=== PATIENT | male | born 1985 | race Caucasian/White ===

== ENCOUNTER → 2017-11-04 08:45 | Outpatient (CLI) | payer OTHER, MEDICAID, SELFPAY ==
[2017-11-04 09:34] LABS: Hemoglobin A1C% w Est Avg Glu 7.7 % (4.0-6.0)
[2017-11-04 09:39] LABS: Alanine Aminotransferase 26 IU/L (21-72); Albumin 4.6 g/dL (3.5-5.0); Albumin Globulin Ratio 1.6 (1.0-2.8); Alkaline Phosphatase 98 U/L (38-126); Aspartate Aminotransferase 25 IU/L (17-59); BUN Creatinine Ratio 15.7 (6-22); Bilirubin Total 0.5 mg/dL (0.2-1.3); Blood Urea Nitrogen 11 mg/dL (9-20); Calcium 9.6 mg/dL (8.4-10.2); Carbon Dioxide 28 mmol/L (22-32); Chloride 103 mmol/L (98-107); Cholesterol 189 mg/dL (140-199); Estimated Glomerular Filt Rate > 60.0 mL/min (>60); Globulin 2.8 g/dL (1.7-4.1); Glucose 118 mg/dL (70-100); HDL Cholesterol 62 mg/dL (40-60); HEMOLYSIS < 15 (0-50); LDL Cholesterol Calculated 108 mg/dL (<100); Potassium 4.3 mmol/L (3.4-5.1); Sodium 142 mmol/L (137-145); Total Protein 7.4 g/dL (6.3-8.2); Triglycerides 93 mg/dL (35-150)
[2017-11-04 09:45] LABS: Creatinine Urine Random 99.2 mg/dL; Protein (Total) Urine Random 9 mg/dL (0-12); Protein Creatinine Ratio Urine 0.09 GRAM/24H
[2017-11-04 16:07] LABS: LDL Cholesterol Direct 129 mg/dL (<100)
== END ==
PROVIDERS: Visit Provider Family Medicine
DX: E10.9 Type 1 diabetes mellitus without complications (principal); E78.5 Hyperlipidemia, unspecified
CPT/HCPCS: 36415; 80053; 80061; 82570; 83036; 83721; 84156

== ENCOUNTER 2021-04-03 07:16 | Inpatient (IN) | payer OTHER, SELFPAY ==
[2021-04-03] VITALS (39 sets, daily range): BP systolic 132–179; BP diastolic 60–93; PULSE 72–141; RESP 16–45; TEMP 36.6–37; O2SAT 97–100; BMI 24.3; BMI 21.1
--- NOTE | 2021-04-03 07:55 | ED_ITS ---
HPI - General Adult General Chief complaint: Nausea/Vomiting/Diarrhea Stated complaint: nausea/unable to sleep x3 days Time Seen by Provider: 04/03/21 07:17 History of Present Illness HPI narrative: 35-year-old type 1 diabetic in outstanding control diagnosed at the age of 23 and no prior episodes of DKA currently on Lantus at 30 mg HS and sliding scale NovoLog presents with 2 days of feeling ?a little off? blood sugar last night was 170 he has had significant vomiting since yesterday, describes approximately every 30 minutes unable to keep fluids down a 10 lb weight loss over the last 48 hours with increasing pain and tenderness in his belly with deep Kussmaul type breathing. He describes global weakness but no specific fevers. No cough no palpitations diffuse abdominal pain, no flank pain no dysuria no diarrhea. He does not describe headache and has no other acute neurologic changes Related Data Home Medications Medication Instructions Recorded Confirmed No Known Home Medications 04/03/21 04/03/21 Allergies Allergy/AdvReac Type Severity Reaction Status Date / Time amoxicillin Allergy Intermediate Hives Verified 04/03/21 14:19 Review of Systems Review of Systems Narrative: Remainder of complete review of systems is otherwise unremarkable except for that included in the HPI. Patient History Medical History (Updated 04/03/21 @ 08:17 by Bushra Avina MD) Type 1 diabetes Social History household members: family Smoking Status: Current every day smoker Exam Narrative Exam Narrative: General: Acutely ill-appearing, Kussmaul breathing but alert and to give a complete and coherent history. Well-nourished well-developed HEENT: Very dry mucous membranes, normal sclera with reactive pupils, Neck: No JVD, supple Respiratory: Lungs are clear to auscultation, no wheezing no rales no rhonchi. Tachypneic with Deep, regular, Full and symmetrical air movement Cardiac: Tachycardic with regular rhythm no murmurs no bruits Abdomen: Soft, diffusely tender without rebound or guarding good bowel tones, no flank pain Skin: Pale and dry no rashes Neurologic: Grossly neurologically intact with no obvious asymmetries or abnormalities Extremities: No trauma, decreased peripheral perfusion Psych: Cooperative, appropriate insight and affect Initial Vital Signs Initial Vital Signs: Vital Signs Pulse Rate 97 H 04/03/21 07:46 Pulse Oximetry 100 04/03/21 07:46 Course Orders Ordered: ED Orders 04/03/21 08:09 XR chest 1V Stat EKG-12 Lead Stat 04/03/21 08:10 Respiratory Panel (Film Array) Stat Venous Blood Gas Stat 04/03/21 08:40 Blood Culture Stat 04/03/21 09:38 CT abdomen pelvis w con Stat 04/03/21 09:40 UA Complete [Urinalysis and Microscopic] Stat 04/03/21 10:45 BMP [Basic Metabolic Panel] Stat Diphenhydramine HCl (Diphenhydramine 50 Mg/Ml Vial) 12.5 mg IV Q6HR PRN PRN Reason: NAUSEA/VOMITING Last Admin: 04/03/21 16:40 Dose: 12.5 mg Documented by: DONNY INSULIN DRIP PREMIX (Myxredlin Drip Premix) 100 unit in 100 mls @ 6 mls/hr IV T ITRATE OSMAR; Protocol Last Titration: 04/03/21 16:31 Dose: 3.35 ml/hr, 3.35 mls/hr Documented by: CADEN Cosigned by: DONNY Titration: 04/03/21 13:00 Dose: 6.68 ml/hr, 6.68 mls/hr Documented by: CADEN Cosigned by: DONNY Titration: 04/03/21 12:05 Dose: 10 ml/hr, 10 mls/hr Documented by: CADEN Cosigned by: DONNY Titration: 04/03/21 09:23 Dose: 2 mls/hr Documented by: TALIA Cosigned by: ESTEPHANIA Admin: 04/03/21 08:26 Dose: 6 ml/hr, 6 mls/hr Documented by: ESTEPHANIA Cosigned by: AARON Dextrose/Sodium Chloride (Dextrose 5%-0.45% Ns) 1,000 mls @ 150 mls/hr IV CONT OSMAR Last Infusion: 04/03/21 12:14 Dose: 0 mls/hr Documented by: Admin: 04/03/21 10:33 Dose: 150 mls/hr Documented by: TALIA Sodium Chloride (Normal Saline 0.9%) 1,000 mls @ 150 mls/hr IV CONT OSMAR Last Admin: 04/03/21 12:15 Dose: 150 mls/hr Documented by: CADEN Metronidazole (Flagyl) 500 mg in 100 mls @ 100 mls/hr IV Q8H [facility] Last Infusion: 04/03/21 16:27 Dose: 0 mls/hr Documented by: Admin: 04/03/21 14:16 Dose: 100 mls/hr Documented by: DONNY Ceftriaxone Sodium 1,000 mg/ (Sodium Chloride) 100 mls @ 200 mls/hr IV Q24H [facility] Sodium Chloride (Normal Saline 0.9%) 1,000 mls @ 1,000 mls/hr IV BOLUS ONE Stop: 04/03/21 17:22 Last Admin: 04/03/21 16:28 Dose: 1,000 mls/hr Documented by: CADEN Lactobacillus Acidophilus (Lactobacillus Acidophilus Tablet) 1 each PO TIDWM [facility] Last Admin: 04/03/21 16:40 Dose: 1 each Documented by: DONNY Naloxone HCl (Naloxone 0.4 Mg/Ml Vial) 0.2 mg IV Q2MIN PRN PRN Reason: Opiate Reversal Ondansetron HCl (Ondansetron 4 Mg/2 Ml Inj) 4 mg IV Q4HR PRN PRN Reason: Nausea And Vomiting Discontinued Medications Sodium Chloride (Normal Saline 0.9%) 1,000 mls @ 1,000 mls/hr IV BOLUS ONE Stop: 04/03/21 09:08 Last Infusion: 04/03/21 09:41 Dose: 0 mls/hr Documented by: Admin: 04/03/21 08:24 Dose: 1,000 mls/hr Documented by: ESTEPHANIA Ceftriaxone Sodium 2,000 mg/ (Sodium Chloride) 100 mls @ 200 mls/hr IV NOW ONE Stop: 04/03/21 09:29 Last Infusion: 04/03/21 11:25 Dose: 0 mls/hr Documented by: Admin: 04/03/21 10:50 Dose: 200 mls/hr Documented by: TALIA Sodium Chloride (Normal Saline 0.9%) 1,000 mls @ 1,000 mls/hr IV BOLUS ONE Stop: 04/03/21 10:27 Last Infusion: 04/03/21 11:25 Dose: 0 mls/hr Documented by: Admin: 04/03/21 10:14 Dose: 1,000 mls/hr Documented by: TALIA Ondansetron HCl (Ondansetron 4 Mg/2 Ml Inj) 4 mg IV NOW ONE Stop: 04/03/21 08:10 Last Admin: 04/03/21 08:23 Dose: 4 mg Documented by: ESTEPHANIA Ondansetron HCl (Ondansetron 4 Mg/2 Ml Inj) 4 mg IV Q6HR PRN PRN Reason: Nausea And Vomiting Last Admin: 04/03/21 14:16 Dose: 4 mg Documented by: DONNY Ondansetron HCl (Ondansetron 4 Mg/2 Ml Inj) 4 mg IV Q6HR PRN PRN Reason: Nausea And Vomiting Vital Signs Vital signs: Vital Signs - 8 hr 04/03/21 09:15 04/03/21 09:16 04/03/21 09:30 Pulse Rate 104 H 101 H 97 H Respiratory Rate 40 H 30 H 36 H Blood Pressure 164/68 H 152/71 H Pulse Oximetry 100 99 100 Medical Decision Making Lab Data Lab results narrative: VB.112, CO2 19 Result diagrams: 04/03/21 07:45 04/03/21 15:00 Labs: Lab Results 04/03/21 04/03/21 04/03/21 Range/Units 07:45 07:45 07:45 WBC 29.7 H (4.5-11.0) X10^3/uL RBC 4.50 (4.5-5.9) X10^6/uL Hgb 13.7 (13.5-17.5) g/dL Hct 42.8 (41-53) % MCV 95.1 (80-100) fL MCH 30.4 (26-34) PG MCHC 32.0 (30-36) % RDW 14.7 (11.6-14.8) % Plt Count 544 H (150-400) X10^3/uL Neut % (Auto) 92.6 H (50-75) % Lymph % (Auto) 2.7 L (25-40) % [place] % (Auto) 4.6 (3-14) % Eos % (Auto) 0.0 L (2-4) % Baso % (Auto) 0.1 (0-2) % Neut # (Auto) 40980 H (0563-4962) /uL Lymph # (Auto) 800 L (6361-3801) /uL [place] # (Auto) 1400 H (0-900) /uL Eos # (Auto) 0 (0-450) /uL Baso # (Auto) 0 (0-100) /uL VBG pH (7.33-7.43) VBG pCO2 (45-50) mmHg VBG pO2 (35-45) mmHg VBG HCO3 (23-28) mmol/L VBG Total CO2 (24-29) mmol/L VBG O2 Saturation (70-75) % VBG Base Excess (0-4) mmol/L Sodium 134 L (137-145) mmol/L Potassium 5.6 H (3.4-5.1) mmol/L Chloride 97 L (98-107) mmol/L Carbon Dioxide < 5 L* (22-32) mmol/L BUN 29 H (9-20) mg/dL Creatinine 1.45 H (0.66-1.25) mg/dL Estimated GFR 55.7 L (>60) mL/min BUN/Creatinine Ratio 20.0 (6-22) Glucose 640 H* (70-100) mg/dL Lactate 4.0 H (0.7-2.1) mmol/L Calcium 10.0 (8.4-10.2) mg/dL Total Bilirubin 0.6 (0.2-1.3) mg/dL AST 29 (17-59) IU/L ALT 29 (<50) IU/L Alkaline Phosphatase 138 H (38-126) U/L Total Protein 8.9 H (6.3-8.2) g/dL Albumin 5.4 H (3.5-5.0) g/dL Globulin 3.5 (1.7-4.1) g/dL Albumin/Globulin Ratio 1.5 (1.0-2.8) Procalcitonin 3.91 H (<0.5) ng/mL Urine Color Urine Appearance Urine pH (4.5-8.0) Ur Specific [place] (1.000-1.035) Urine Protein (Negative) Urine Glucose (UA) (Negative) g/dL Urine Ketones (NEGATIVE) Urine Occult Blood (Negative) Urine Nitrate (Negative) Urine Bilirubin (NEGATIVE) Urine Urobilinogen (0.2) E.U./dL Ur Leukocyte Esterase (NEGATIVE) Urine RBC (0-5/HPF) Urine WBC (0-5/HPF) Ur Squamous Epith Cells (0-5/HPF) Urine Bacteria (None) Ur Culture Indicated? Ketones 10.60 H (<0.27) mmol/L Chlamy pneumoniae PCR (Not Detect) Adenovirus (PCR) (Not Detect) B. pertussis DNA (PCR) (Not Detecte) B.parapertussis DNA PCR (Not Detecte) Coronavirus OC43 (PCR) (Not Detect) Coronavirus HKU1 (PCR) (Not Detect) Coronavirus 229E (PCR) (Not Detect) SARS-CoV-2 (PCR) (Not Detecte) Coronavirus NL63 (PCR) (Not Detect) Human Metapneumovir PCR (Not Detect) Influenza Type A (PCR) (Not Detect) Influenza Type B (PCR) (Not Detect) M. pneumoniae (PCR) (Not Detect) Parainfluenza 1 (PCR) (Not Detect) Parainfluenza 2 (PCR) (Not Detect) Parainfluenza 3 (PCR) (Not Detect) Parainfluenza 4 (PCR) (Not Detect) RSV (PCR) (Not Detect) Entero/Rhino (PCR) (Not Detect) 04/03/21 04/03/21 04/03/21 Range/Units 08:10 08:10 09:40 WBC (4.5-11.0) X10^3/uL RBC (4.5-5.9) X10^6/uL Hgb (13.5-17.5) g/dL Hct (41-53) % MCV (80-100) fL MCH (26-34) PG MCHC (30-36) % RDW (11.6-14.8) % Plt Count (150-400) X10^3/uL Neut % (Auto) (50-75) % Lymph % (Auto) (25-40) % [place] % (Auto) (3-14) % Eos % (Auto) (2-4) % Baso % (Auto) (0-2) % Neut # (Auto) (4244-1894) /uL Lymph # (Auto) (1808-0023) /uL [place] # (Auto) (0-900) /uL Eos # (Auto) (0-450) /uL Baso # (Auto) (0-100) /uL VBG pH 7.11 L* (7.33-7.43) VBG pCO2 19.0 L (45-50) mmHg VBG pO2 54 H (35-45) mmHg VBG HCO3 6 L (23-28) mmol/L VBG Total CO2 7 L (24-29) mmol/L VBG O2 Saturation 77 H (70-75) % VBG Base Excess -23.0 L (0-4) mmol/L Sodium (137-145) mmol/L Potassium (3.4-5.1) mmol/L Chloride (98-107) mmol/L Carbon Dioxide (22-32) mmol/L BUN (9-20) mg/dL Creatinine (0.66-1.25) mg/dL Estimated GFR (>60) mL/min BUN/Creatinine Ratio (6-22) Glucose (70-100) mg/dL Lactate (0.7-2.1) mmol/L Calcium (8.4-10.2) mg/dL Total Bilirubin (0.2-1.3) mg/dL AST (17-59) IU/L ALT (<50) IU/L Alkaline Phosphatase (38-126) U/L Total Protein (6.3-8.2) g/dL Albumin (3.5-5.0) g/dL Globulin (1.7-4.1) g/dL Albumin/Globulin Ratio (1.0-2.8) Procalcitonin (<0.5) ng/mL Urine Color Yellow Urine Appearance Clear Urine pH 5.0 (4.5-8.0) Ur Specific [place] 1.025 (1.000-1.035) Urine Protein Negative (Negative) Urine Glucose (UA) 1+ H (Negative) g/dL Urine Ketones 3+ H (NEGATIVE) Urine Occult Blood 1+ H (Negative) Urine Nitrate Negative (Negative) Urine Bilirubin Negative (NEGATIVE) Urine Urobilinogen 0.2 (0.2) E.U./dL Ur Leukocyte Esterase Negative (NEGATIVE) Urine RBC 0-1/hpf (0-5/HPF) Urine WBC None seen (0-5/HPF) Ur Squamous Epith Cells None seen (0-5/HPF) Urine Bacteria None seen (None) Ur Culture Indicated? Cult not indicated Ketones (<0.27) mmol/L Chlamy pneumoniae PCR Not detected (Not Detect) Adenovirus (PCR) Not detected (Not Detect) B. pertussis DNA (PCR) Not detected (Not Detecte) B.parapertussis DNA PCR Not detected (Not Detecte) Coronavirus OC43 (PCR) Not detected (Not Detect) Coronavirus HKU1 (PCR) Not detected (Not Detect) Coronavirus 229E (PCR) Not detected (Not Detect) SARS-CoV-2 (PCR) Not detected (Not Detecte) Coronavirus NL63 (PCR) Not detected (Not Detect) Human Metapneumovir PCR Not detected (Not Detect) Influenza Type A (PCR) Not detected (Not Detect) Influenza Type B (PCR) Not detected (Not Detect) M. pneumoniae (PCR) Not detected (Not Detect) Parainfluenza 1 (PCR) Not detected (Not Detect) Parainfluenza 2 (PCR) Not detected (Not Detect) Parainfluenza 3 (PCR) Not detected (Not Detect) Parainfluenza 4 (PCR) Not detected (Not Detect) RSV (PCR) Not detected (Not Detect) Entero/Rhino (PCR) Not detected (Not Detect) Point of Care Testing Glucose POC 343 Point of care testing: Point of Care Testing Glucose POC [address] scan - abdomen/pelvis: Radiologist's Impression: FINDINGS:? Image quality:? Excellent.? ? Lung bases:? Unremarkable. Heart:? No significant findings. ? ABDOMEN: Liver:? Enlarged and demonstrates diffusely decreased density.? No focal mass. Gallbladder:? Grossly unremarkable? ? Biliary ducts:? Unremarkable.? ? Pancreas:? Unremarkable.? ? Spleen:? Unremarkable.? ? Adrenal Glands:? Unremarkable.? ? Kidneys and Ureters:? Unremarkable.? ? ? Stomach and Bowel:? Stomach is grossly unremarkable.? There are multiple mildly thickened small bowel loops within the central and right pelvis.? Colon is nondistended.? Appendix is within normal limits. Peritoneum:? No abnormal intraperitoneal fluid.? No free air.? ? Ventral Wall: ? No hernias.? Abdominal Nodes:? No retroperitoneal or mesenteric adenopathy by size criteria.? Vessels:? Aorta and inferior vena cava are normal in size.? ? PELVIS: Pelvic Organs:? Unremarkable.? ? Bladder:? Unremarkable.? ? Pelvic Nodes: No enlarged lymph nodes.? Miscellaneous: No hernias are seen. ? ? ? Bones:? Unremarkable.? IMPRESSION:? 1. Mildly thickened small bowel loops, consistent with infection versus inflamm ation. 2. Normal appendix. 3. Hepatic steatosis.? ? ? Dictated by: Gerald Winn M.D. on 04/03/2021 at 10:08? ?? ECG Data Interpretation: Sinus rhythm at a rate of 89 Peaked T-waves No acute ischemic changes (K=5.6) MDM Narrative Medical decision making narrative: [age] year olds type 1 diabetic with no prior episodes of DKA in his 12 years of type 1 diabetes presents with 2 days of general malaise and now vomiting every 30 minutes with a white count significantly elevated at 29.7 with a left shift. Chemistries show a pH of 7.1 on a venous blood gas with potassium of 5.6 carbon dioxide is less than 5, creatinine 1.45 glucose initially elevated at 640 lactic acid at 4.0, alk-phos of 138 total protein 8.9 albumin 5.4 and procalcitonin significantly elevated at 3.91. Chest x-ray is unremarkable. Urine is currently pending. Given his dramatically elevated white blood cell count as well as elevated procalcitonin concern for infectious etiology that is resulted in his DKA is certainly a possibility. I suspect his elevated lactic is related more to his diabetic ketoacidosis rather than sepsis or lactic acidosis. Will begin antib iotics and scan his belly as well to make sure we are not missing other source of infection. 950am care is reviewed with Dr. Jordan, admission is excepted. Will repeat a BMP, 2 hours since starting the insulin drip and adding fluids. Critical Care Time Critical Care Time Critical Care Time: Yes Total Critical Care Time: 33 Attestation: Critical care time is separate from other billable procedures. There is a high probability of a significant, sudden or life-threatening deterioration that requires my full and direct attention, intervention and personal management. This critical care time includes consultation with family and other consulting doctors, review of records, and interpretation of data from labs, EKGs and imaging as well as managements of severe diabetic ketoacidosis, endocrine crisis. Discharge Plan Departure Patient Disposition: Admitted As Inpatient Clinical Impression: DKA (diabetic ketoacidosis), Type 1 diabetes Admit Date/Time: 04/03/21 09:54 Admit Provider: Michaelle Jordan
--- NOTE | 2021-04-03 08:09 | DI.RAD.S_ITS ---
PROCEDURE: XR CHEST 1V INDICATIONS: DKA TECHNIQUE: One view of the chest was acquired. COMPARISON: None. FINDINGS: Surgical changes and devices: None. Lungs and pleura: Lungs are clear. No pleural effusions or pneumothorax. Mediastinum: Mediastinal contours appear normal. Heart size is normal. Bones and chest wall: No suspicious bony lesions. Overlying soft tissues appear unremarkable. IMPRESSION: No acute process. Dictated by: Gerald Winn M.D. on 04/03/2021 at 9:10 Approved by: Gerald Winn M.D. on 04/03/2021 at 9:10
[2021-04-03 08:18] LABS: Add Manual Diff / Slide Review NO; Basophils Absolute Auto 0 /uL (0-100); Basophils Percent Auto 0.1 % (0-2); Eosinophils Absolute Auto 0 /uL (0-450); Hematocrit 42.8 % (41-53); Hemoglobin 13.7 g/dL (13.5-17.5); Lymphocytes Absolute Auto 800 /uL (1100-4500); Lymphocytes Percent Auto 2.7 % (25-40); Mean Corpuscular Hemoglobin 30.4 PG (26-34); Mean Corpuscular Volume 95.1 fL (80-100); Monocytes Absolute Auto 1400 /uL (0-900); Monocytes Percent Auto 4.6 % (3-14); Neutrophils Absolute Auto 27500 /uL (1500-7000); Neutrophils Percent Auto 92.6 % (50-75); Platelet Count 544 X10^3/uL (150-400); Red Cell Distribution Width 14.7 % (11.6-14.8); White Blood Cell Count 29.7 X10^3/uL (4.5-11.0)
[2021-04-03] MEDS: ONDANSETRON 4 MG/2 ML INJ IV ×3 (08:23→23:20)
[2021-04-03] MEDS: SODIUM CHLORIDE 0.9% 1,000 ML 1000 ML IV ×3 (08:24→16:28)
[2021-04-03] MEDS: INSULIN DRIP PREMIX 100 UNIT/100 ML PLAST..BAG 6 UNIT IV (08:26)
[2021-04-03 08:29] LABS: Alanine Aminotransferase 29 IU/L (<50); Albumin 5.4 g/dL (3.5-5.0); Albumin Globulin Ratio 1.5 (1.0-2.8); Alkaline Phosphatase 138 U/L (38-126); Aspartate Aminotransferase 29 IU/L (17-59); Bilirubin Total 0.6 mg/dL (0.2-1.3); Blood Urea Nitrogen 29 mg/dL (9-20); Chloride 97 mmol/L (98-107); Estimated Glomerular Filt Rate 55.7 mL/min (>60); Globulin 3.5 g/dL (1.7-4.1); Sodium 134 mmol/L (137-145); Total Protein 8.9 g/dL (6.3-8.2)
[2021-04-03 08:30] LABS: pH VBG 7.11 (7.33-7.43)
[2021-04-03 08:31] LABS: HCO3 VBG 6 mmol/L (23-28); Oxygen Saturation VBG 77 % (70-75); PO2 VBG 54 mmHg (35-45); Total CO2 VBG 7 mmol/L (24-29)
[2021-04-03 08:36] LABS: HEMOLYSIS < 15 (0-50)
[2021-04-03 08:38] LABS: Glucose 640 mg/dL (70-100)
[2021-04-03 08:39] LABS: Carbon Dioxide < 5 mmol/L (22-32); Potassium 5.6 mmol/L (3.4-5.1)
[2021-04-03 08:48] LABS: Procalcitonin 3.91 ng/mL (<0.5)
[2021-04-03 09:23] LABS: Adenovirus Not Detected (Not Detect); B. parapertussis Not Detected (Not Detecte); Bordetella pertussis Not Detected (Not Detecte); Chlamydophila pneumoniae Not Detected (Not Detect); Coronavirus 229E Not Detected (Not Detect); Coronavirus HKU1 Not Detected (Not Detect); Coronavirus NL 63 Not Detected (Not Detect); Coronavirus OC43 Not Detected (Not Detect); Human Metapneumovirus Not Detected (Not Detect); Human Rhinovirus/Enterovirus Not Detected (Not Detect); Influenza A Not Detected (Not Detect); Influenza B Not Detected (Not Detect); Mycoplasma pneumoniae Not Detected (Not Detect); Parainfluenza Virus 1 Not Detected (Not Detect); Parainfluenza Virus 2 Not Detected (Not Detect); Parainfluenza Virus 3 Not Detected (Not Detect); Parainfluenza Virus 4 Not Detected (Not Detect); Respiratory Syncytial Virus Not Detected (Not Detect); SARS- CoV-2 Not Detected (Not Detecte)
--- NOTE | 2021-04-03 09:38 | DI.CT.S_ITS ---
PROCEDURE: CT ABDOMEN PELVIS W CON INDICATIONS: leykocytosis, abdominal pain, DKA TECHNIQUE: After the administration of intravenous and a small amount of oral contrast, axial sections acquired from the lung bases to the pubic symphysis. Coronal and sagittal reformats were performed. For radiation dose reduction, the following was used: automated exposure control, adjustment of mA and/or kV according to patient size. COMPARISON: None. FINDINGS: Image quality: Excellent. Lung bases: Unremarkable. Heart: No significant findings. ABDOMEN: Liver: Enlarged and demonstrates diffusely decreased density. No focal mass. Gallbladder: Grossly unremarkable Biliary ducts: Unremarkable. Pancreas: Unremarkable. Spleen: Unremarkable. Adrenal Glands: Unremarkable. Kidneys and Ureters: Unremarkable. Stomach and Bowel: Stomach is grossly unremarkable. There are multiple mildly thickened small bowel loops within the central and right pelvis. Colon is nondistended. Appendix is within normal limits. Peritoneum: No abnormal intraperitoneal fluid. No free air. Ventral Wall: No hernias. Abdominal Nodes: No retroperitoneal or mesenteric adenopathy by size criteria. Vessels: Aorta and inferior vena cava are normal in size. PELVIS: Pelvic Organs: Unremarkable. Bladder: Unremarkable. Pelvic Nodes: No enlarged lymph nodes. Miscellaneous: No hernias are seen. Bones: Unremarkable. IMPRESSION: 1. Mildly thickened small bowel loops, consistent with infection versus inflammation. 2. Normal appendix. 3. Hepatic steatosis. Dictated by: Gerald Winn M.D. on 04/03/2021 at 10:08 Approved by: Gerald Winn M.D. on 04/03/2021 at 10:10
[2021-04-03 09:49] LABS: Appearance Urine UA CLEAR; Bilirubin Urine UA NEGATIVE (NEGATIVE); Color Urine UA YELLOW; Glucose Urine UA 1+ g/dL (Negative); Ketones Urine UA 3+ (NEGATIVE); Leukocyte Esterase Urine UA NEGATIVE (NEGATIVE); Nitrite Urine UA NEGATIVE (Negative); Occult Blood Urine UA 1+ (Negative); Protein Urine UA NEGATIVE (Negative); Specific Gravity Urine UA 1.025 (1.000-1.035); Urobilinogen Urine UA 0.2 E.U./dL (0.2)
[2021-04-03 09:57] LABS: Bacteria Urine None Seen; Culture Indicated Urine Cult Not Indicated; RBC Urine 0-1/HPF (0-5/HPF); Squamous Epithelial Cell Urine None Seen (0-5/HPF); WBC Urine None Seen (0-5/HPF)
[2021-04-03 10:15] LABS: Reflexed Lactate in 2 Hours Y
[2021-04-03] MEDS: DEXTROSE 5%-0.45% NS 1,000 ML 150 ML IV (10:33)
[2021-04-03] MEDS: cefTRIAXone 2,000 MG in SODIUM CHLORIDE 0.9% 100 ML 200 ML IV (10:50)
[2021-04-03 11:16] LABS: Lactate 2HR (Lactic Acid Rflx) 1.8 mmol/L (0.7-2.1)
[2021-04-03 11:30] LABS: BUN Creatinine Ratio 23.3 (6-22); Blood Urea Nitrogen 28 mg/dL (9-20); Calcium 9.4 mg/dL (8.4-10.2); Chloride 107 mmol/L (98-107); Estimated Glomerular Filt Rate > 60.0 mL/min (>60); Glucose 365 mg/dL (70-100); HEMOLYSIS < 15 (0-50); Potassium 5.3 mmol/L (3.4-5.1); Sodium 140 mmol/L (137-145)
[2021-04-03 11:32] LABS: Carbon Dioxide < 5 mmol/L (22-32)
[2021-04-03] MEDS: SODIUM CHLORIDE 0.9% 1,000 ML 150 ML IV (12:15)
--- NOTE | 2021-04-03 13:33 | PM.CN ---
History of Present Illness Consult details Date Patient Seen: 04/03/21 Chief complaint: nausea/unable to sleep x3 days Narrative: THIS IS A 35-YEAR-OLD MALE WITH A HISTORY OF FAIRLY CONTROLLED DIABETIC TYPE 1. HE USES [facility]. HE CAME TO THE ER REPORTING THAT FOR LAST FEW DAY HE HAS NOT BEEN SLEEPING WELL AND HAS BEEN HAVING SIGNIFICANT NAUSEA AND VOMITING. THIS STARTED ABOUT THREE DAYS AGO. HE REMEMBER GOING OUT TO EAT ONE OF THE LOCAL RESTAURANT AND THE NEXT DAY STARTING FEELING NAUSEOUS AND HAVE MULTIPLE BOUTS OF VOMITING. HE DENIES ANY DIARRHEA. HE HAS SIGNIFICANTLY DECREASED ORAL INTAKE OVER LAST FEW DAYS DUE TO THE SEVERE NAUSEA. HE DENIES ANY FEVER. NO CHILLS. SOME ABDOMINAL DISCOMFORT ALSO REPORTED. DIFFUSE AND NONFOCAL. IN THE ER, HE IS TACHYCARDIC AND HYPERTENSIVE . SIGNIFICANT LEUKOCYTOSIS ALSO APPRECIATED. HE WAS ACIDOTIC FOR ABG WELL THROMBOCYTOTIC CHEST X-RAY WAS UNREMARKABLE. ABDOMINAL CT SHOWING SOME FATTY LIVER DISEASE WELL SOME SMALL BOWEL INFLAMMATION WHICH COULD BE DUODENITIS Meds Home Medications and Allergies Home Medications Medication Instructions Recorded Confirmed Type No Known Home Medications 04/03/21 04/03/21 History Allergies Allergy/AdvReac Type Severity Reaction Status Date / Time amoxicillin Allergy Intermediate Hives Verified 04/03/21 14:19 Review of Systems Review of Systems Narrative: ALL SYSTEM REVIEWED. NEGATIVE UNLESS NOTED ABOVE IN HPI Exam Vital Signs (past 8 hours): - 04/03/21 07:46 04/03/21 07:49 04/03/21 08:00 Temperature 97.9 F Pulse Rate 97 H 95 H 102 H Respiratory Rate 28 H Blood Pressure 139/76 Pulse Oximetry 100 100 100 04/03/21 08:15 04/03/21 08:30 04/03/21 08:45 Temperature Pulse Rate 100 H 103 H 99 H Respiratory Rate Blood Pressure Pulse Oximetry 100 100 100 04/03/21 08:46 04/03/21 09:00 04/03/21 09:15 Temperature Pulse Rate 100 H 94 H 104 H Respiratory Rate 30 H 44 H 40 H Blood Pressure 158/72 H 149/67 H Pulse Oximetry 100 99 100 04/03/21 09:16 04/03/21 09:30 04/03/21 10:00 Temperature Pulse Rate 101 H 97 H 110 H Respiratory Rate 30 H 36 H Blood Pressure 164/68 H 152/71 H Pulse Oximetry 99 100 100 04/03/21 10:11 04/03/21 10:15 04/03/21 10:30 Temperature Pulse Rate 104 H 95 H 114 H Respiratory Rate 31 H 39 H 28 H Blood Pressure 140/86 145/69 H Pulse Oximetry 100 100 100 04/03/21 10:34 04/03/21 10:45 04/03/21 10:53 Temperature Pulse Rate 106 H 141 H 114 H Respiratory Rate 36 H 42 H 35 H Blood Pressure 164/71 H 132/93 H Pulse Oximetry 100 04/03/21 11:00 04/03/21 11:01 04/03/21 11:15 Temperature Pulse Rate 117 H 125 H 102 H Respiratory Rate 28 H 45 H 33 H Blood Pressure 179/74 H 159/70 H Pulse Oximetry 100 Oxygen Delivery Method Room Air Narrative Exam Narrative: NO ACUTE DISTRESS. PATIENT IS ALERT ORIENTED X3. APPEARS OLDER THAN STATED AGE VITAL SIGNS STABLE HEAD ATRAUMATIC NORMOCEPHALIC NECK : SUPPLE WITHOUT ADENOPATHY NO CAROTID BRUITS EYE: EOMI, PERRLA, NORMAL CONJUNCTIVA; NO JAUNDICE CHEST: REGULAR RATE. NO RUBS. PMI IS NON DISPLACED. NO MURMURS; NORMAL S1-S2 PULMONARY: DECREASED BS OVER THE BASES. MILD BIBASILAR CRACKLES NOTED; NO INCREASED DULLNESS TO PERCUSSION ABDOMEN: SOFT. NONTENDER. NONDISTENDED. BOWEL SOUNDS ARE PRESENT IN ALL 4 QUADRANTS. NO MASS. EXTREMITIES: NO EDEMA.. NO CYANOSIS CLUBBING NOTED. NEURO: CRANIAL NERVES 2-12 GROSSLY INTACT. NO FOCAL NEUROLOGICAL DEFICIT NOTED. MSK: NORMAL RANGE OF MOTION FOR AGE. NO JOINT EFFUSION. SKIN: NORMAL FOR ETHNICITY; NO ECCHYMOSIS. NO LESION. GOOD TURGOR.; NO RASHES : NORMAL EXTERNAL GENITALIA. PSYCH : APPROPRIATE MOOD AND AFFECT. ALERT AWAKE ORIENTED X3 Objective Labs Result Diagrams: 04/03/21 07:45 04/03/21 10:45 Labs: Laboratory Results - last 24 hr 04/03/21 04/03/21 04/03/21 07:45 07:45 07:45 WBC 29.7 H RBC 4.50 Hgb 13.7 Hct 42.8 MCV 95.1 MCH 30.4 MCHC 32.0 RDW 14.7 Plt Count 544 H Neut % (Auto) 92.6 H Lymph % (Auto) 2.7 L [place] % (Auto) 4.6 Eos % (Auto) 0.0 L Baso % (Auto) 0.1 Neut # (Auto) 64963 H Lymph # (Auto) 800 L [place] # (Auto) 1400 H Eos # (Auto) 0 Baso # (Auto) 0 VBG pH VBG pCO2 VBG pO2 VBG HCO3 VBG Total CO2 VBG O2 Saturation VBG Base Excess Sodium 134 L Potassium 5.6 H Chloride 97 L Carbon Dioxide < 5 L* BUN 29 H Creatinine 1.45 H Estimated GFR 55.7 L BUN/Creatinine Ratio 20.0 Glucose 640 H* Lactate 4.0 H Calcium 10.0 Total Bilirubin 0.6 AST 29 ALT 29 Alkaline Phosphatase 138 H Total Protein 8.9 H Albumin 5.4 H Globulin 3.5 Albumin/Globulin Ratio 1.5 Procalcitonin 3.91 H Urine Color Urine Appearance Urine pH Ur Specific [place] Urine Protein Urine Glucose (UA) Urine Ketones Urine Occult Blood Urine Nitrate Urine Bilirubin Urine Urobilinogen Ur Leukocyte Esterase Urine RBC Urine WBC Ur Squamous Epith Cells Urine Bacteria Ur Culture Indicated? Ketones 10.60 H Chlamy pneumoniae PCR Adenovirus (PCR) B. pertussis DNA (PCR) B.parapertussis DNA PCR Coronavirus OC43 (PCR) Coronavirus HKU1 (PCR) Coronavirus 229E (PCR) SARS-CoV-2 (PCR) Coronavirus NL63 (PCR) Human Metapneumovir PCR Influenza Type A (PCR) Influenza Type B (PCR) M. pneumoniae (PCR) Parainfluenza 1 (PCR) Parainfluenza 2 (PCR) Parainfluenza 3 (PCR) Parainfluenza 4 (PCR) RSV (PCR) Entero/Rhino (PCR) 04/03/21 04/03/21 04/03/21 08:10 08:10 09:40 WBC RBC Hgb Hct MCV MCH MCHC RDW Plt Count Neut % (Auto) Lymph % (Auto) [place] % (Auto) Eos % (Auto) Baso % (Auto) Neut # (Auto) Lymph # (Auto) [place] # (Auto) Eos # (Auto) Baso # (Auto) VBG pH 7.11 L* VBG pCO2 19.0 L VBG pO2 54 H VBG HCO3 6 L VBG Total CO2 7 L VBG O2 Saturation 77 H VBG Base Excess -23.0 L Sodium Potassium Chloride Carbon Dioxide BUN Creatinine Estimated GFR BUN/Creatinine Ratio Glucose Lactate Calcium Total Bilirubin AST ALT Alkaline Phosphatase Total Protein Albumin Globulin Albumin/Globulin Ratio Procalcitonin Urine Color Yellow Urine Appearance Clear Urine pH 5.0 Ur Specific [place] 1.025 Urine Protein Negative Urine Glucose (UA) 1+ H Urine Ketones 3+ H Urine Occult Blood 1+ H Urine Nitrate Negative Urine Bilirubin Negative Urine Urobilinogen 0.2 Ur Leukocyte Esterase Negative Urine RBC 0-1/hpf Urine WBC None seen Ur Squamous Epith Cells None seen Urine Bacteria None seen Ur Culture Indicated? Cult not indicated Ketones Chlamy pneumoniae PCR Not detected Adenovirus (PCR) Not detected B. pertussis DNA (PCR) Not detected B.parapertussis DNA PCR Not detected Coronavirus OC43 (PCR) Not detected Coronavirus HKU1 (PCR) Not detected Coronavirus 229E (PCR) Not detected SARS-CoV-2 (PCR) Not detected Coronavirus NL63 (PCR) Not detected Human Metapneumovir PCR Not detected Influenza Type A (PCR) Not detected Influenza Type B (PCR) Not detected M. pneumoniae (PCR) Not detected Parainfluenza 1 (PCR) Not detected Parainfluenza 2 (PCR) Not detected Parainfluenza 3 (PCR) Not detected Parainfluenza 4 (PCR) Not detected RSV (PCR) Not detected Entero/Rhino (PCR) Not detected 04/03/21 04/03/21 10:45 10:55 WBC RBC Hgb Hct MCV MCH MCHC RDW Plt Count Neut % (Auto) Lymph % (Auto) [place] % (Auto) Eos % (Auto) Baso % (Auto) Neut # (Auto) Lymph # (Auto) [place] # (Auto) Eos # (Auto) Baso # (Auto) VBG pH VBG pCO2 VBG pO2 VBG HCO3 VBG Total CO2 VBG O2 Saturation VBG Base Excess Sodium 140 Potassium 5.3 H Chloride 107 Carbon Dioxide < 5 L* BUN 28 H Creatinine 1.20 Estimated GFR > 60.0 BUN/Creatinine Ratio 23.3 H Glucose 365 H D Lactate 1.8 Calcium 9.4 Total Bilirubin AST ALT Alkaline Phosphatase Total Protein Albumin Globulin Albumin/Globulin Ratio Procalcitonin Urine Color Urine Appearance Urine pH Ur Specific [place] Urine Protein Urine Glucose (UA) Urine Ketones Urine Occult Blood Urine Nitrate Urine Bilirubin Urine Urobilinogen Ur Leukocyte Esterase Urine RBC Urine WBC Ur Squamous Epith Cells Urine Bacteria Ur Culture Indicated? Ketones Chlamy pneumoniae PCR Adenovirus (PCR) B. pertussis DNA (PCR) B.parapertussis DNA PCR Coronavirus OC43 (PCR) Coronavirus HKU1 (PCR) Coronavirus 229E (PCR) SARS-CoV-2 (PCR) Coronavirus NL63 (PCR) Human Metapneumovir PCR Influenza Type A (PCR) Influenza Type B (PCR) M. pneumoniae (PCR) Parainfluenza 1 (PCR) Parainfluenza 2 (PCR) Parainfluenza 3 (PCR) Parainfluenza 4 (PCR) RSV (PCR) Entero/Rhino (PCR) [facility] Medical History (Updated 04/03/21 @ 08:17 by Bushra Avina MD) Type 1 diabetes Social History household members: family Tobacco & Substance Use Smoking Status: Current every day smoker Assessment & Plan Assessment & Plan narrative: PROBLEM LIST DKA. ON INSULIN DRIP DUODENITIS MORE LIKELY VERSUS GASTROENTERITIS /FOOD POISONING. ON ANTIBIOTICS POSSIBLE SEPSIS. PRESENT ON ARRIVAL. WITH ORGAN DYSFUNCTION. LEUKOCYTOSIS ACUTE KIDNEY INJURY. APPEARED TO BE PRERENAL SEVERE DEHYDRATION / INTRAVASCULAR FLUID DEPLETION THROMBOCYTOSIS. LIKELY ACUTE REACTANT POSSIBLE FATTY LIVER DISEASE. COULD BE FURTHER FOLLOWED OUTPATIENT HYPERKALEMIA. MONITOR ONLY FOR NOW. RECOMMENDATIONS CONTINUE INSULIN DRIP FOR NOW Q 4 HOURS BASIC METABOLIC PANEL ORDERED TO EVALUATE ANION GAP /ACIDOSIS AGGRESSIVE IV REHYDRATION CHANGE TO D5 NORMAL SALINE ONCE BLOOD SUGAR IS LESS THAN 250 IF GAP PERSIST MONITOR PHOSPHORUS AND OTHER ELECTROLYTES CLOSELY SERIAL ABG TO FOLLOW INDICATED AVOID NEPHROTOXINS MONITOR INPUT AND OUTPUT CLOSELY PATIENT STARTED ON ABX WITH ROCEPHIN AND FLAGYL WOULD ORDER STOOL STUDIES IF DIARRHEA DEVELOPS HYPERKALEMIA NOTED ON ADMISSION. HOWEVER NO ACUTE TREATMENT INDICATED NO ARRHYTHMIA NOTED ON TELEMETRY SHOULD RESOLVE WITH CORRECTION OF THE DKA WE APPRECIATE THIS KIND CONSULT WILL GLADLY FOLLOW WITH YOU Time Spent With Patient Critical Care time: I spent a total of [] minutes of critical care time on this patient's care today; this time is exclusive of procedural time.
[2021-04-03 14:10] LABS: PCO2 VBG 20.8 mmHg (45-50); PO2 VBG 35 mmHg (35-45); pH VBG 7.25 (7.33-7.43)
[2021-04-03 14:11] LABS: HCO3 VBG 9 mmol/L (23-28); Oxygen Saturation VBG 61 % (70-75); Total CO2 VBG 10 mmol/L (24-29)
[2021-04-03] MEDS: metroNIDAZOLE 500 MG/100 ML PIGGYBACK 100 MG IV ×2 (14:16→22:34)
--- NOTE | 2021-04-03 15:34 | P.TELICUCN_ITS ---
History of Present Illness Consult details Chief complaint: nausea/unable to sleep x3 days :: This patient was seen via real time interactive two-way audiovisual telecommunication. admited to ICU for DKA feels better nausea [present PFSH Medical History (Updated 04/03/21 @ 08:17 by Bushra Avina MD) Type 1 diabetes Social History household members: family Smoking Status: Current every day smoker Current Medications Current Medications Medications: Home Medications No Known Home Medications 04/03/21 [History Confirmed 04/03/21] Visit Medications (administered) Generic Name Dose Route Start Last Admin Trade Name Freq PRN Reason Stop Dose Admin INSULIN DRIP PREMIX 100 unit in 100 mls @ 6 mls/hr 04/03/21 08:15 04/03/21 12:05 Myxredlin Drip Premix IV 10 ml/hr TITRATE OSMAR 10 mls/hr Titration Protocol Dextrose/Sodium Chloride 1,000 mls @ 150 mls/hr 04/03/21 10:15 04/03/21 12:14 Dextrose 5%-0.45% Ns IV 0 mls/hr CONT OSMAR Infusion Sodium Chloride 1,000 mls @ 150 mls/hr 04/03/21 12:15 04/03/21 12:15 Normal Saline 0.9% IV 150 mls/hr CONT OSMAR Administration Metronidazole 500 mg in 100 mls @ 100 mls/hr 04/03/21 14:00 04/03/21 14:16 Flagyl IV 100 mls/hr Q8H OSMAR Administration Ondansetron HCl 4 mg 04/03/21 13:04 04/03/21 14:16 Ondansetron 4 Mg/2 Ml Inj IV 4 mg Q6HR PRN Administration Nausea And Vomiting Exam Vital Signs (past 8 hours): - 04/03/21 07:46 04/03/21 07:49 04/03/21 08:00 Temperature 97.9 F Pulse Rate 97 H 95 H 102 H Respiratory Rate 28 H Blood Pressure 139/76 Pulse Oximetry 100 100 100 04/03/21 08:15 04/03/21 08:30 04/03/21 08:45 Temperature Pulse Rate 100 H 103 H 99 H Respiratory Rate Blood Pressure Pulse Oximetry 100 100 100 04/03/21 08:46 12/22/21 09:00 04/03/21 09:15 Temperature Pulse Rate 100 H 94 H 104 H Respiratory Rate 30 H 44 H 40 H Blood Pressure 158/72 H 149/67 H Pulse Oximetry 100 99 100 04/03/21 09:16 04/03/21 09:30 04/03/21 10:00 Temperature Pulse Rate 101 H 97 H 110 H Respiratory Rate 30 H 36 H Blood Pressure 164/68 H 152/71 H Pulse Oximetry 99 100 100 04/03/21 10:11 04/03/21 10:15 04/03/21 10:30 Temperature Pulse Rate 104 H 95 H 114 H Respiratory Rate 31 H 39 H 28 H Blood Pressure 140/86 145/69 H Pulse Oximetry 100 100 100 04/03/21 10:34 04/03/21 10:45 04/03/21 10:53 Temperature Pulse Rate 106 H 141 H 114 H Respiratory Rate 36 H 42 H 35 H Blood Pressure 164/71 H 132/93 H Pulse Oximetry 100 04/03/21 11:00 04/03/21 11:01 04/03/21 11:15 Temperature Pulse Rate 117 H 125 H 102 H Respiratory Rate 28 H 45 H 33 H Blood Pressure 179/74 H 159/70 H Pulse Oximetry 100 04/03/21 11:30 04/03/21 14:00 04/03/21 14:55 Temperature Pulse Rate 102 H 100 H 90 Respiratory Rate 32 H 32 H Blood Pressure 152/71 H 136/63 Pulse Oximetry 100 100 Oxygen Delivery Method Room Air Oxygen Flow Rate 0 Objective Labs Result Diagrams: 04/03/21 07:45 04/03/21 10:45 Labs: Laboratory Results - last 24 hr 04/03/21 04/03/21 04/03/21 07:45 07:45 07:45 WBC 29.7 H RBC 4.50 Hgb 13.7 Hct 42.8 MCV 95.1 MCH 30.4 MCHC 32.0 RDW 14.7 Plt Count 544 H Neut % (Auto) 92.6 H Lymph % (Auto) 2.7 L [place] % (Auto) 4.6 Eos % (Auto) 0.0 L Baso % (Auto) 0.1 Neut # (Auto) 11733 H Lymph # (Auto) 800 L [place] # (Auto) 1400 H Eos # (Auto) 0 Baso # (Auto) 0 VBG pH VBG pCO2 VBG pO2 VBG HCO3 VBG Total CO2 VBG O2 Saturation VBG Base Excess Sodium 134 L Potassium 5.6 H Chloride 97 L Carbon Dioxide < 5 L* BUN 29 H Creatinine 1.45 H Estimated GFR 55.7 L BUN/Creatinine Ratio 20.0 Glucose 640 H* Lactate 4.0 H Calcium 10.0 Total Bilirubin 0.6 AST 29 ALT 29 Alkaline Phosphatase 138 H Total Protein 8.9 H Albumin 5.4 H Globulin 3.5 Albumin/Globulin Ratio 1.5 Procalcitonin 3.91 H Urine Color Urine Appearance Urine pH Ur Specific [place] Urine Protein Urine Glucose (UA) Urine Ketones Urine Occult Blood Urine Nitrate Urine Bilirubin Urine Urobilinogen Ur Leukocyte Esterase Urine RBC Urine WBC Ur Squamous Epith Cells Urine Bacteria Ur Culture Indicated? Nasal Screen MRSA (PCR) Ketones 10.60 H Chlamy pneumoniae PCR Adenovirus (PCR) B. pertussis DNA (PCR) B.parapertussis DNA PCR Coronavirus OC43 (PCR) Coronavirus HKU1 (PCR) Coronavirus 229E (PCR) SARS-CoV-2 (PCR) Coronavirus NL63 (PCR) Human Metapneumovir PCR Influenza Type A (PCR) Influenza Type B (PCR) M. pneumoniae (PCR) Parainfluenza 1 (PCR) Parainfluenza 2 (PCR) Parainfluenza 3 (PCR) Parainfluenza 4 (PCR) RSV (PCR) Entero/Rhino (PCR) 04/03/21 04/03/21 04/03/21 08:10 08:10 09:40 WBC RBC Hgb Hct MCV MCH MCHC RDW Plt Count Neut % (Auto) Lymph % (Auto) [place] % (Auto) Eos % (Auto) Baso % (Auto) Neut # (Auto) Lymph # (Auto) [place] # (Auto) Eos # (Auto) Baso # (Auto) VBG pH 7.11 L* VBG pCO2 19.0 L VBG pO2 54 H VBG HCO3 6 L VBG Total CO2 7 L VBG O2 Saturation 77 H VBG Base Excess -23.0 L Sodium Potassium Chloride Carbon Dioxide BUN Creatinine Estimated GFR BUN/Creatinine Ratio Glucose Lactate Calcium Total Bilirubin AST ALT Alkaline Phosphatase Total Protein Albumin Globulin Albumin/Globulin Ratio Procalcitonin Urine Color Yellow Urine Appearance Clear Urine pH 5.0 Ur Specific [place] 1.025 Urine Protein Negative Urine Glucose (UA) 1+ H Urine Ketones 3+ H Urine Occult Blood 1+ H Urine Nitrate Negative Urine Bilirubin Negative Urine Urobilinogen 0.2 Ur Leukocyte Esterase Negative Urine RBC 0-1/hpf Urine WBC None seen Ur Squamous Epith Cells None seen Urine Bacteria None seen Ur Culture Indicated? Cult not indicated Nasal Screen MRSA (PCR) Ketones Chlamy pneumoniae PCR Not detected Adenovirus (PCR) Not detected B. pertussis DNA (PCR) Not detected B.parapertussis DNA PCR Not detected Coronavirus OC43 (PCR) Not detected Coronavirus HKU1 (PCR) Not detected Coronavirus 229E (PCR) Not detected SARS-CoV-2 (PCR) Not detected Coronavirus NL63 (PCR) Not detected Human Metapneumovir PCR Not detected Influenza Type A (PCR) Not detected Influenza Type B (PCR) Not detected M. pneumoniae (PCR) Not detected Parainfluenza 1 (PCR) Not detected Parainfluenza 2 (PCR) Not detected Parainfluenza 3 (PCR) Not detected Parainfluenza 4 (PCR) Not detected RSV (PCR) Not detected Entero/Rhino (PCR) Not detected 04/03/21 04/03/21 04/03/21 10:45 10:55 12:16 WBC RBC Hgb Hct MCV MCH MCHC RDW Plt Count Neut % (Auto) Lymph % (Auto) [place] % (Auto) Eos % (Auto) Baso % (Auto) Neut # (Auto) Lymph # (Auto) [place] # (Auto) Eos # (Auto) Baso # (Auto) VBG pH VBG pCO2 VBG pO2 VBG HCO3 VBG Total CO2 VBG O2 Saturation VBG Base Excess Sodium 140 Potassium 5.3 H Chloride 107 Carbon Dioxide < 5 L* BUN 28 H Creatinine 1.20 Estimated GFR > 60.0 BUN/Creatinine Ratio 23.3 H Glucose 365 H D Lactate 1.8 Calcium 9.4 Total Bilirubin AST ALT Alkaline Phosphatase Total Protein Albumin Globulin Albumin/Globulin Ratio Procalcitonin Urine Color Urine Appearance Urine pH Ur Specific [place] Urine Protein Urine Glucose (UA) Urine Ketones Urine Occult Blood Urine Nitrate Urine Bilirubin Urine Urobilinogen Ur Leukocyte Esterase Urine RBC Urine WBC Ur Squamous Epith Cells Urine Bacteria Ur Culture Indicated? Nasal Screen MRSA (PCR) Negative for mrsa Ketones Chlamy pneumoniae PCR Adenovirus (PCR) B. pertussis DNA (PCR) B.parapertussis DNA PCR Coronavirus OC43 (PCR) Coronavirus HKU1 (PCR) Coronavirus 229E (PCR) SARS-CoV-2 (PCR) Coronavirus NL63 (PCR) Human Metapneumovir PCR Influenza Type A (PCR) Influenza Type B (PCR) M. pneumoniae (PCR) Parainfluenza 1 (PCR) Parainfluenza 2 (PCR) Parainfluenza 3 (PCR) Parainfluenza 4 (PCR) RSV (PCR) Entero/Rhino (PCR) 04/03/21 13:19 WBC RBC Hgb Hct MCV MCH MCHC RDW Plt Count Neut % (Auto) Lymph % (Auto) [place] % (Auto) Eos % (Auto) Baso % (Auto) Neut # (Auto) Lymph # (Auto) [place] # (Auto) Eos # (Auto) Baso # (Auto) VBG pH 7.25 L VBG pCO2 20.8 L VBG pO2 35 VBG HCO3 9 L VBG Total CO2 10 L VBG O2 Saturation 61 L VBG Base Excess -18.0 L Sodium Potassium Chloride Carbon Dioxide BUN Creatinine Estimated GFR BUN/Creatinine Ratio Glucose Lactate Calcium Total Bilirubin AST ALT Alkaline Phosphatase Total Protein Albumin Globulin Albumin/Globulin Ratio Procalcitonin Urine Color Urine Appearance Urine pH Ur Specific [place] Urine Protein Urine Glucose (UA) Urine Ketones Urine Occult Blood Urine Nitrate Urine Bilirubin Urine Urobilinogen Ur Leukocyte Esterase Urine RBC Urine WBC Ur Squamous Epith Cells Urine Bacteria Ur Culture Indicated? Nasal Screen MRSA (PCR) Ketones Chlamy pneumoniae PCR Adenovirus (PCR) B. pertussis DNA (PCR) B.parapertussis DNA PCR Coronavirus OC43 (PCR) Coronavirus HKU1 (PCR) Coronavirus 229E (PCR) SARS-CoV-2 (PCR) Coronavirus NL63 (PCR) Human Metapneumovir PCR Influenza Type A (PCR) Influenza Type B (PCR) M. pneumoniae (PCR) Parainfluenza 1 (PCR) Parainfluenza 2 (PCR) Parainfluenza 3 (PCR) Parainfluenza 4 (PCR) RSV (PCR) Entero/Rhino (PCR) Assessment & Plan Assessment & Plan narrative: patient seen and examined with bedside nurse chart/labs/imaging reviewed 35 year old male with PMhx of DM1 with DKA dehydration hyperkaemia small bowel inflammation plan -bolus 1L of LR -continue dka protocol -repeat bmp -continue abx check cxs can dc if -ve -check a1c -gi/vdt ppx -pleaser call Tele ICU if condition changes Time Spent With Patient Critical Care time: I spent a total of [] minutes of critical care time on this patient's care today; this time is exclusive of procedural time.
[2021-04-03 15:42] LABS: BUN Creatinine Ratio 22.5 (6-22); Blood Urea Nitrogen 23 mg/dL (9-20); Calcium 9.1 mg/dL (8.4-10.2); Carbon Dioxide 11 mmol/L (22-32); Chloride 113 mmol/L (98-107); Estimated Glomerular Filt Rate > 60.0 mL/min (>60); Glucose 218 mg/dL (70-100); HEMOLYSIS 24 (0-50); Potassium 4.4 mmol/L (3.4-5.1); Sodium 142 mmol/L (137-145)
[2021-04-03] MEDS: diphenhydrAMINE 50 MG/ML VIAL 12.5 MG IV (16:40)
[2021-04-03] MEDS: LACTOBACILLUS ACIDOPHILUS TABLET 1 EACH PO (16:40)
[2021-04-03] MEDS: INSULIN DRIP PREMIX 100 UNIT/100 ML PLAST..BAG IV (17:24)
[2021-04-03 17:57] LABS: BUN Creatinine Ratio 23.3 (6-22); Blood Urea Nitrogen 21 mg/dL (9-20); Calcium 8.6 mg/dL (8.4-10.2); Carbon Dioxide 15 mmol/L (22-32); Chloride 115 mmol/L (98-107); Estimated Glomerular Filt Rate > 60.0 mL/min (>60); Glucose 149 mg/dL (70-100); HEMOLYSIS 19 (0-50); Sodium 141 mmol/L (137-145)
--- NOTE | 2021-04-03 18:17 | P.HP_ITS ---
History of Present Illness History of Present Illness Date Patient Seen: 04/03/21 Time Patient Seen: 18:17 Date of Onset of Symptoms: 03/31/21 Chief complaint: nausea/unable to sleep x3 days Narrative: Is a very pleasant 35-year-old male who presented to the ER today with intractable vomiting that had been ongoing for 2 and half days. He has a history of type 1 diabetes is under the primary care of Dr. Nicholson. He uses NovoLog insulin usually is very well controlled. He states that he started feeling off on Thursday night and because he fell off he just really could not describe it. He no longer had an appetite and actually stopped eating. Then on Thursday morning he was at work where he works on a [employer] from on [facility] [place] states that he distant feel right. He then by the end of the day started vomiting and continued to vomit every 20 minutes until he reported to the emergency department. He had pain throughout his body and muscles from the vomiting and felt weak in his legs. In the emergency department he was found to be in diabetic ketoacidosis with a pH of 7.1 and acidosis and and was admitted for treatment. He was started on insulin drip and quickly started correcting his acidosis, ketosis and pH. Past medical history: Insulin-dependent diabetes. He was diagnosed at about 23. He has been on NovoLog 1 unit per 8 g carbohydrates and has done very well. Tobacco use Allergies: Amoxicillin causes a rash Past surgical history: Unremarkable Health related behavior: Smokes cigarettes. Uses marijuana on a daily basis. Does not use illicit drugs. Uses rare alcohol Social history: Patient lives in in accordance with his parents. He works on [employer] Family history: He has 2 sisters who are type 1 diabetics but no other family history of abnormalities Patient History Medical History Type 1 diabetes Family & Social History Social History: household members family Prior Living Arrangements House Safety & Behavioral: Feels Safe in Current Yes Environment Been Physically Hurt or No Threatened By a Person Suicidal Ideation Description None Suicide Plan Description No Plan Tobacco & Substance use: Tobacco type cigarettes,cannabis/marijuana Smoking Status Current every day smoker Smoking packs per day 0.5 alcohol intake frequency 0-2 drinks per day Substance Use Type marijuana Meds Home Medications and Allergies Home Medications Medication Instructions Recorded Confirmed Type No Known Home Medications 12/22/21 12/22/21 History Allergies Allergy/AdvReac Type Severity Reaction Status Date / Time amoxicillin Allergy Intermediate Hives Verified 04/03/21 14:19 Review of Systems Review of Systems Narrative: Patient denies any fever, chills, diarrhea. He has not had a bowel movement for 3 days. He has not been eating for 3 days. He has been trying to stay up on water but was having excessive vomiting. He has not had a fever. He has not had a cough. He has not had a headache. He denies chest pain or shortness of breath. Diffusely his muscles hurt from vomiting. Twelve point review of system is otherwise negative other than above in HPI Exam Vital Signs (past 8 hours): - 04/03/21 10:30 04/03/21 10:34 04/03/21 10:45 Pulse Rate 114 H 106 H 141 H Respiratory Rate 28 H 36 H 42 H Blood Pressure 164/71 H Pulse Oximetry 100 100 04/03/21 10:53 04/03/21 11:00 04/03/21 11:01 Pulse Rate 114 H 117 H 125 H Respiratory Rate 35 H 28 H 45 H Blood Pressure 132/93 H 179/74 H Pulse Oximetry 04/03/21 11:15 04/03/21 11:30 04/03/21 14:00 Pulse Rate 102 H 102 H 100 H Respiratory Rate 33 H 32 H 32 H Blood Pressure 159/70 H 152/71 H Pulse Oximetry 100 100 04/03/21 14:55 04/03/21 15:00 04/03/21 15:15 Pulse Rate 90 100 H 87 Respiratory Rate Blood Pressure 136/63 136/63 Pulse Oximetry 100 100 100 04/03/21 15:30 04/03/21 15:45 04/03/21 16:00 Pulse Rate 80 86 88 Respiratory Rate Blood Pressure 140/62 Pulse Oximetry 100 100 100 04/03/21 16:15 04/03/21 16:30 04/03/21 16:45 Pulse Rate 83 89 88 Respiratory Rate Blood Pressure Pulse Oximetry 99 99 100 04/03/21 17:00 04/03/21 17:15 04/03/21 17:30 Pulse Rate 79 86 105 H Respiratory Rate Blood Pressure 136/92 H Pulse Oximetry 97 100 100 04/03/21 17:45 04/03/21 18:00 Pulse Rate 79 93 H Respiratory Rate Blood Pressure 148/67 H Pulse Oximetry 100 100 Oxygen Delivery Method Room Air Oxygen Flow Rate 0 Narrative Exam Narrative: Alert and oriented x3. HEENT is unremarkable other than dry mucous membranes Neck: Supple without adenopathy or thyromegaly or jugular venous distension Chest: Clear to auscultation without wheezes rhonchi or crackles Cor: Regular rate and rhythm without any murmur Abdomen: Positive bowel sounds, soft, nontender, nondistended, no guarding, no hepatosplenomegaly Extremities: No edema, pulses intact Neurologic exam nonfocal Skin exam no rashes Objective Labs Result Diagrams: 04/03/21 07:45 04/03/21 17:30 Labs: Laboratory Results - last 24 hr 04/03/21 04/03/21 04/03/21 07:45 07:45 07:45 WBC 29.7 H RBC 4.50 Hgb 13.7 Hct 42.8 MCV 95.1 MCH 30.4 MCHC 32.0 RDW 14.7 Plt Count 544 H Neut % (Auto) 92.6 H Lymph % (Auto) 2.7 L [place] % (Auto) 4.6 Eos % (Auto) 0.0 L Baso % (Auto) 0.1 Neut # (Auto) 12269 H Lymph # (Auto) 800 L [place] # (Auto) 1400 H Eos # (Auto) 0 Baso # (Auto) 0 VBG pH VBG pCO2 VBG pO2 VBG HCO3 VBG Total CO2 VBG O2 Saturation VBG Base Excess Sodium 134 L Potassium 5.6 H Chloride 97 L Carbon Dioxide < 5 L* BUN 29 H Creatinine 1.45 H Estimated GFR 55.7 L BUN/Creatinine Ratio 20.0 Glucose 640 H* Lactate 4.0 H Calcium 10.0 Total Bilirubin 0.6 AST 29 ALT 29 Alkaline Phosphatase 138 H Total Protein 8.9 H Albumin 5.4 H Globulin 3.5 Albumin/Globulin Ratio 1.5 Procalcitonin 3.91 H Urine Color Urine Appearance Urine pH Ur Specific [place] Urine Protein Urine Glucose (UA) Urine Ketones Urine Occult Blood Urine Nitrate Urine Bilirubin Urine Urobilinogen Ur Leukocyte Esterase Urine RBC Urine WBC Ur Squamous Epith Cells Urine Bacteria Ur Culture Indicated? Nasal Screen MRSA (PCR) Ketones 10.60 H Chlamy pneumoniae PCR Adenovirus (PCR) B. pertussis DNA (PCR) B.parapertussis DNA PCR Coronavirus OC43 (PCR) Coronavirus HKU1 (PCR) Coronavirus 229E (PCR) SARS-CoV-2 (PCR) Coronavirus NL63 (PCR) Human Metapneumovir PCR Influenza Type A (PCR) Influenza Type B (PCR) M. pneumoniae (PCR) Parainfluenza 1 (PCR) Parainfluenza 2 (PCR) Parainfluenza 3 (PCR) Parainfluenza 4 (PCR) RSV (PCR) Entero/Rhino (PCR) 04/03/21 04/03/21 04/03/21 08:10 08:10 09:40 WBC RBC Hgb Hct MCV MCH MCHC RDW Plt Count Neut % (Auto) Lymph % (Auto) [place] % (Auto) Eos % (Auto) Baso % (Auto) Neut # (Auto) Lymph # (Auto) [place] # (Auto) Eos # (Auto) Baso # (Auto) VBG pH 7.11 L* VBG pCO2 19.0 L VBG pO2 54 H VBG HCO3 6 L VBG Total CO2 7 L VBG O2 Saturation 77 H VBG Base Excess -23.0 L Sodium Potassium Chloride Carbon Dioxide BUN Creatinine Estimated GFR BUN/Creatinine Ratio Glucose Lactate Calcium Total Bilirubin AST ALT Alkaline Phosphatase Total Protein Albumin Globulin Albumin/Globulin Ratio Procalcitonin Urine Color Yellow Urine Appearance Clear Urine pH 5.0 Ur Specific [place] 1.025 Urine Protein Negative Urine Glucose (UA) 1+ H Urine Ketones 3+ H Urine Occult Blood 1+ H Urine Nitrate Negative Urine Bilirubin Negative Urine Urobilinogen 0.2 Ur Leukocyte Esterase Negative Urine RBC 0-1/hpf Urine WBC None seen Ur Squamous Epith Cells None seen Urine Bacteria None seen Ur Culture Indicated? Cult not indicated Nasal Screen MRSA (PCR) Ketones Chlamy pneumoniae PCR Not detected Adenovirus (PCR) Not detected B. pertussis DNA (PCR) Not detected B.parapertussis DNA PCR Not detected Coronavirus OC43 (PCR) Not detected Coronavirus HKU1 (PCR) Not detected Coronavirus 229E (PCR) Not detected SARS-CoV-2 (PCR) Not detected Coronavirus NL63 (PCR) Not detected Human Metapneumovir PCR Not detected Influenza Type A (PCR) Not detected Influenza Type B (PCR) Not detected M. pneumoniae (PCR) Not detected Parainfluenza 1 (PCR) Not detected Parainfluenza 2 (PCR) Not detected Parainfluenza 3 (PCR) Not detected Parainfluenza 4 (PCR) Not detected RSV (PCR) Not detected Entero/Rhino (PCR) Not detected 04/03/21 04/03/21 04/03/21 10:45 10:55 12:16 WBC RBC Hgb Hct MCV MCH MCHC RDW Plt Count Neut % (Auto) Lymph % (Auto) [place] % (Auto) Eos % (Auto) Baso % (Auto) Neut # (Auto) Lymph # (Auto) [place] # (Auto) Eos # (Auto) Baso # (Auto) VBG pH VBG pCO2 VBG pO2 VBG HCO3 VBG Total CO2 VBG O2 Saturation VBG Base Excess Sodium 140 Potassium 5.3 H Chloride 107 Carbon Dioxide < 5 L* BUN 28 H Creatinine 1.20 Estimated GFR > 60.0 BUN/Creatinine Ratio 23.3 H Glucose 365 H D Lactate 1.8 Calcium 9.4 Total Bilirubin AST ALT Alkaline Phosphatase Total Protein Albumin Globulin Albumin/Globulin Ratio Procalcitonin Urine Color Urine Appearance Urine pH Ur Specific [place] Urine Protein Urine Glucose (UA) Urine Ketones Urine Occult Blood Urine Nitrate Urine Bilirubin Urine Urobilinogen Ur Leukocyte Esterase Urine RBC Urine WBC Ur Squamous Epith Cells Urine Bacteria Ur Culture Indicated? Nasal Screen MRSA (PCR) Negative for mrsa Ketones Chlamy pneumoniae PCR Adenovirus (PCR) B. pertussis DNA (PCR) B.parapertussis DNA PCR Coronavirus OC43 (PCR) Coronavirus HKU1 (PCR) Coronavirus 229E (PCR) SARS-CoV-2 (PCR) Coronavirus NL63 (PCR) Human Metapneumovir PCR Influenza Type A (PCR) Influenza Type B (PCR) M. pneumoniae (PCR) Parainfluenza 1 (PCR) Parainfluenza 2 (PCR) Parainfluenza 3 (PCR) Parainfluenza 4 (PCR) RSV (PCR) Entero/Rhino (PCR) 04/03/21 04/03/21 04/03/21 13:19 15:00 17:30 WBC RBC Hgb Hct MCV MCH MCHC RDW Plt Count Neut % (Auto) Lymph % (Auto) [place] % (Auto) Eos % (Auto) Baso % (Auto) Neut # (Auto) Lymph # (Auto) [place] # (Auto) Eos # (Auto) Baso # (Auto) VBG pH 7.25 L VBG pCO2 20.8 L VBG pO2 35 VBG HCO3 9 L VBG Total CO2 10 L VBG O2 Saturation 61 L VBG Base Excess -18.0 L Sodium 142 141 Potassium 4.4 4.0 Chloride 113 H 115 H Carbon Dioxide 11 L 15 L BUN 23 H 21 H Creatinine 1.02 0.90 Estimated GFR > 60.0 > 60.0 BUN/Creatinine Ratio 22.5 H 23.3 H Glucose 218 H D 149 H Lactate Calcium 9.1 8.6 Total Bilirubin AST ALT Alkaline Phosphatase Total Protein Albumin Globulin Albumin/Globulin Ratio Procalcitonin Urine Color Urine Appearance Urine pH Ur Specific [place] Urine Protein Urine Glucose (UA) Urine Ketones Urine Occult Blood Urine Nitrate Urine Bilirubin Urine Urobilinogen Ur Leukocyte Esterase Urine RBC Urine WBC Ur Squamous Epith Cells Urine Bacteria Ur Culture Indicated? Nasal Screen MRSA (PCR) Ketones Chlamy pneumoniae PCR Adenovirus (PCR) B. pertussis DNA (PCR) B.parapertussis DNA PCR Coronavirus OC43 (PCR) Coronavirus HKU1 (PCR) Coronavirus 229E (PCR) SARS-CoV-2 (PCR) Coronavirus NL63 (PCR) Human Metapneumovir PCR Influenza Type A (PCR) Influenza Type B (PCR) M. pneumoniae (PCR) Parainfluenza 1 (PCR) Parainfluenza 2 (PCR) Parainfluenza 3 (PCR) Parainfluenza 4 (PCR) RSV (PCR) Entero/Rhino (PCR) Assessment & Plan Assessment & Plan narrative: 35-year-old male with insulin-dependent diabetes admitted for diabetic ketoacidosis Assessment 1. Diabetic ketoacidosis. Improving with insulin drip Plan: Continue with insulin drip. Appreciate hospitalist consultation. Continue with IV fluids to correct dehydration and to correct electrolyte abn ormalities. Assessment 2. Acute dehydration improved Plan: Continue with IV fluids Assessment 3. Vomiting. Differential diagnosis includes infectious versus inflammatory versus possibly cannabis hyperemesis syndrome. Seems that his symptoms fit with this. CT scan showed inflammation in the small intestines which could just be due to the amount of vomiting he was having. Plan: Continue ceftriaxone and the Flagyl until we get his culture results back. He had a markedly elevated white blood cell count. Will recheck this in the morning. Will continue not using marijuana at this time. Continue supporting nausea with Zofran. Will continue with IV fluids and correcting the dehydration. Assessment 4. Leukocytosis certainly could be acute dehydration and DKA versus possible infectious etiology Plan at this point will continue ceftriaxone and the Flagyl. Will reassess labs in a.m.. Code status is full code. 70 minute spent with patient, discussing his case with physicians, nursing, patient, documentation and formulating a plan. Time Spent With Patient Critical Care time: I spent a total of [] minutes of critical care time on this patient's care today; this time is exclusive of procedural time.
--- NOTE | 2021-04-03 18:46 | PC.NURSE ---
pt admitted to room 229- icu with dka and elevated wbc- c/ointermittent joint pain and some nausea- medicated with zofran as well as benedryl to control nausea- voiding per urinal and resting intermittently alert/oriented and cooperative
[2021-04-03] MEDS: DEXTROSE 5%-0.45% NS 1,000 ML 100 ML IV (20:47)
[2021-04-03 22:05] LABS: BUN Creatinine Ratio 24.4 (6-22); Blood Urea Nitrogen 19 mg/dL (9-20); Calcium 8.8 mg/dL (8.4-10.2); Carbon Dioxide 20 mmol/L (22-32); Chloride 115 mmol/L (98-107); Estimated Glomerular Filt Rate > 60.0 mL/min (>60); Glucose 131 mg/dL (70-100); HEMOLYSIS 19 (0-50); Potassium 3.8 mmol/L (3.4-5.1); Sodium 140 mmol/L (137-145)
[2021-04-03 22:08] LABS: Ketones (Beta-Hydroxybutyrate) 0.86 mmol/L (<0.27)
[2021-04-03] MEDS: INSULIN GLARGINE 100 UNIT/ML 3ML PEN 30 UNIT SUBCUT (22:52)
[2021-04-03 23:06] LABS: HCO3 VBG 18 mmol/L (23-28); PCO2 VBG 34.7 mmHg (45-50); PO2 VBG 40 mmHg (35-45); Total CO2 VBG 19 mmol/L (24-29)
[2021-04-03 23:07] LABS: Oxygen Saturation VBG 71 % (70-75); pH VBG 7.33 (7.33-7.43)
--- NOTE | 2021-04-03 23:36 | PM.ICURNDS ---
- Note: Case discussed with CLIENT ACCOUNT REPRESENTATIVE earlier this shift. Due to hyperchloremia, I ordered a BOHB despite a normal anion gapp. 21:40 result was still (+)-->will continue DKA protocol.
[2021-04-04] VITALS: BP 135/64; PULSE 86; RESP 17; TEMP 36.8; O2SAT 100
[2021-04-04 00:57] LABS: Hemoglobin A1C% w Est Avg Glu 6.1 % (4.0-6.0)
[2021-04-04] MEDS: diphenhydrAMINE 50 MG/ML VIAL 12.5 MG IV (02:10)
[2021-04-04 04:29] VITALS: BP 131/66; PULSE 90; RESP 16; TEMP 36.7; O2SAT 100
[2021-04-04] MEDS: metroNIDAZOLE 500 MG/100 ML PIGGYBACK 100 MG IV ×3 (05:26→21:29)
[2021-04-04 05:59] LABS: Add Manual Diff / Slide Review NO; Basophils Absolute Auto 0 /uL (0-100); Basophils Percent Auto 0.2 % (0-2); Eosinophils Absolute Auto 0 /uL (0-450); Hematocrit 35.1 % (41-53); Hemoglobin 11.6 g/dL (13.5-17.5); Lymphocytes Absolute Auto 700 /uL (1100-4500); Lymphocytes Percent Auto 3.4 % (25-40); Mean Corpuscular Hemoglobin 30.1 PG (26-34); Mean Corpuscular Volume 91.2 fL (80-100); Monocytes Absolute Auto 900 /uL (0-900); Monocytes Percent Auto 4.4 % (3-14); Neutrophils Absolute Auto 19300 /uL (1500-7000); Platelet Count 408 X10^3/uL (150-400); Red Blood Cell Count 3.84 X10^6/uL (4.5-5.9); Red Cell Distribution Width 14.1 % (11.6-14.8)
[2021-04-04 06:07] LABS: Alanine Aminotransferase 24 IU/L (<50); Albumin 4.3 g/dL (3.5-5.0); Albumin Globulin Ratio 1.8 (1.0-2.8); Alkaline Phosphatase 82 U/L (38-126); Aspartate Aminotransferase 30 IU/L (17-59); BUN Creatinine Ratio 21.7 (6-22); Bilirubin Total 0.8 mg/dL (0.2-1.3); Blood Urea Nitrogen 18 mg/dL (9-20); Carbon Dioxide 10 mmol/L (22-32); Chloride 107 mmol/L (98-107); Estimated Glomerular Filt Rate > 60.0 mL/min (>60); Globulin 2.4 g/dL (1.7-4.1); Glucose 368 mg/dL (70-100); HEMOLYSIS 57 (0-50); Potassium 4.3 mmol/L (3.4-5.1); Sodium 138 mmol/L (137-145); Total Protein 6.7 g/dL (6.3-8.2)
--- NOTE | 2021-04-04 06:12 | PC.NURSE ---
Addendum entered by Sweta Santa R.N. 04/04/21 06:18: Informed Jacinto also of pt's ketones of 8.44 from this am lab. Original Note: Informed BENJAMIN Casey of pt's. BG result per am lab is 368, she will order vbg.
[2021-04-04 06:14] LABS: Ketones (Beta-Hydroxybutyrate) 8.44 mmol/L (<0.27)
--- NOTE | 2021-04-04 07:20 | PM.PN.1 ---
Subjective Subjective Date Patient Seen: 04/04/21 Interval history: BRIEF HPI THIS IS A VERY PLEASANT 35-YEAR-OLD MALE WITH PAST MEDICAL HISTORY SIGNIFICANT WITH INSULIN-DEPENDENT DIABETES. TYPE 1. PATIENT HAS BEEN ADMITTED WITH DKA WELL GASTROENTERITIS. THIS MORNING PATIENT STATED THAT HE WAS NOT FEELING TOO WELL HE WAS NAUSEATED. FEELING SIGNIFICANT MALAISE NO VOMITING REPORTED. NO ABDOMINAL DISCOMFORT NO DIARRHEA SPOKE TO NURSING REGARDING THE CASE Exam Vital Signs (past 8 hours): - 04/04/21 00:00 04/04/21 04:29 Temperature 98.2 F 98.0 F Pulse Rate 86 90 Respiratory Rate 17 16 Blood Pressure 135/64 131/66 Pulse Oximetry 100 100 Oxygen Delivery Method Room Air Oxygen Flow Rate 0 Narrative Exam Narrative: NO ACUTE DISTRESS.? PATIENT IS ALERT ORIENTED X3.? APPEARS OLDER THAN STATED AGE VITAL SIGNS STABLE HEAD ATRAUMATIC NORMOCEPHALIC NECK : SUPPLE WITHOUT ADENOPATHY NO CAROTID BRUITS EYE:? EOMI, PERRLA, NORMAL CONJUNCTIVA; NO JAUNDICE CHEST:? REGULAR RATE.? ? NO RUBS.? PMI IS NON DISPLACED.? NO MURMURS; NORMAL S1-S2 PULMONARY:? DECREASED BS OVER THE BASES.? MILD BIBASILAR CRACKLES NOTED; NO INCREASED DULLNESS TO PERCUSSION ABDOMEN:? SOFT.? NONTENDER.? NONDISTENDED.? BOWEL SOUNDS ARE PRESENT IN ALL 4 QUADRANTS.? NO MASS. EXTREMITIES: NO EDEMA..? NO CYANOSIS CLUBBING NOTED. NEURO:? CRANIAL NERVES 2-12 GROSSLY INTACT. NO FOCAL NEUROLOGICAL DEFICIT NOTED. MSK:? NORMAL RANGE OF MOTION FOR AGE.? NO JOINT EFFUSION. SKIN:? NORMAL FOR ETHNICITY; NO ECCHYMOSIS.? NO LESION. ? GOOD? TURGOR.; NO RASHES :? NORMAL EXTERNAL GENITALIA. PSYCH :? APPROPRIATE MOOD AND AFFECT.? ALERT AWAKE ORIENTED X3 Objective Labs Result Diagrams: 04/04/21 05:30 04/04/21 05:30 Labs: Laboratory Results - last 24 hr 04/03/21 04/03/21 04/03/21 07:45 07:45 07:45 WBC 29.7 H RBC 4.50 Hgb 13.7 Hct 42.8 MCV 95.1 MCH 30.4 MCHC 32.0 RDW 14.7 Plt Count 544 H Neut % (Auto) 92.6 H Lymph % (Auto) 2.7 L [place] % (Auto) 4.6 Eos % (Auto) 0.0 L Baso % (Auto) 0.1 Neut # (Auto) 35016 H Lymph # (Auto) 800 L [place] # (Auto) 1400 H Eos # (Auto) 0 Baso # (Auto) 0 VBG pH VBG pCO2 VBG pO2 VBG HCO3 VBG Total CO2 VBG O2 Saturation VBG Base Excess Sodium 134 L Potassium 5.6 H Chloride 97 L Carbon Dioxide < 5 L* BUN 29 H Creatinine 1.45 H Estimated GFR 55.7 L BUN/Creatinine Ratio 20.0 Glucose 640 H* Hemoglobin A1c Lactate 4.0 H Calcium 10.0 Total Bilirubin 0.6 AST 29 ALT 29 Alkaline Phosphatase 138 H Total Protein 8.9 H Albumin 5.4 H Globulin 3.5 Albumin/Globulin Ratio 1.5 Procalcitonin 3.91 H Urine Color Urine Appearance Urine pH Ur Specific [place] Urine Protein Urine Glucose (UA) Urine Ketones Urine Occult Blood Urine Nitrate Urine Bilirubin Urine Urobilinogen Ur Leukocyte Esterase Urine RBC Urine WBC Ur Squamous Epith Cells Urine Bacteria Ur Culture Indicated? Nasal Screen MRSA (PCR) Ketones 10.60 H Chlamy pneumoniae PCR Adenovirus (PCR) B. pertussis DNA (PCR) B.parapertussis DNA PCR Coronavirus OC43 (PCR) Coronavirus HKU1 (PCR) Coronavirus 229E (PCR) SARS-CoV-2 (PCR) Coronavirus NL63 (PCR) Human Metapneumovir PCR Influenza Type A (PCR) Influenza Type B (PCR) M. pneumoniae (PCR) Parainfluenza 1 (PCR) Parainfluenza 2 (PCR) Parainfluenza 3 (PCR) Parainfluenza 4 (PCR) RSV (PCR) Entero/Rhino (PCR) 04/03/21 04/03/21 04/03/21 08:10 08:10 09:40 WBC RBC Hgb Hct MCV MCH MCHC RDW Plt Count Neut % (Auto) Lymph % (Auto) [place] % (Auto) Eos % (Auto) Baso % (Auto) Neut # (Auto) Lymph # (Auto) [place] # (Auto) Eos # (Auto) Baso # (Auto) VBG pH 7.11 L* VBG pCO2 19.0 L VBG pO2 54 H VBG HCO3 6 L VBG Total CO2 7 L VBG O2 Saturation 77 H VBG Base Excess -23.0 L Sodium Potassium Chloride Carbon Dioxide BUN Creatinine Estimated GFR BUN/Creatinine Ratio Glucose Hemoglobin A1c Lactate Calcium Total Bilirubin AST ALT Alkaline Phosphatase Total Protein Albumin Globulin Albumin/Globulin Ratio Procalcitonin Urine Color Yellow Urine Appearance Clear Urine pH 5.0 Ur Specific [place] 1.025 Urine Protein Negative Urine Glucose (UA) 1+ H Urine Ketones 3+ H Urine Occult Blood 1+ H Urine Nitrate Negative Urine Bilirubin Negative Urine Urobilinogen 0.2 Ur Leukocyte Esterase Negative Urine RBC 0-1/hpf Urine WBC None seen Ur Squamous Epith Cells None seen Urine Bacteria None seen Ur Culture Indicated? Cult not indicated Nasal Screen MRSA (PCR) Ketones Chlamy pneumoniae PCR Not detected Adenovirus (PCR) Not detected B. pertussis DNA (PCR) Not detected B.parapertussis DNA PCR Not detected Coronavirus OC43 (PCR) Not detected Coronavirus HKU1 (PCR) Not detected Coronavirus 229E (PCR) Not detected SARS-CoV-2 (PCR) Not detected Coronavirus NL63 (PCR) Not detected Human Metapneumovir PCR Not detected Influenza Type A (PCR) Not detected Influenza Type B (PCR) Not detected M. pneumoniae (PCR) Not detected Parainfluenza 1 (PCR) Not detected Parainfluenza 2 (PCR) Not detected Parainfluenza 3 (PCR) Not detected Parainfluenza 4 (PCR) Not detected RSV (PCR) Not detected Entero/Rhino (PCR) Not detected 04/03/21 04/03/21 04/03/21 10:45 10:55 12:16 WBC RBC Hgb Hct MCV MCH MCHC RDW Plt Count Neut % (Auto) Lymph % (Auto) [place] % (Auto) Eos % (Auto) Baso % (Auto) Neut # (Auto) Lymph # (Auto) [place] # (Auto) Eos # (Auto) Baso # (Auto) VBG pH VBG pCO2 VBG pO2 VBG HCO3 VBG Total CO2 VBG O2 Saturation VBG Base Excess Sodium 140 Potassium 5.3 H Chloride 107 Carbon Dioxide < 5 L* BUN 28 H Creatinine 1.20 Estimated GFR > 60.0 BUN/Creatinine Ratio 23.3 H Glucose 365 H D Hemoglobin A1c Lactate 1.8 Calcium 9.4 Total Bilirubin AST ALT Alkaline Phosphatase Total Protein Albumin Globulin Albumin/Globulin Ratio Procalcitonin Urine Color Urine Appearance Urine pH Ur Specific [place] Urine Protein Urine Glucose (UA) Urine Ketones Urine Occult Blood Urine Nitrate Urine Bilirubin Urine Urobilinogen Ur Leukocyte Esterase Urine RBC Urine WBC Ur Squamous Epith Cells Urine Bacteria Ur Culture Indicated? Nasal Screen MRSA (PCR) Negative for mrsa Ketones Chlamy pneumoniae PCR Adenovirus (PCR) B. pertussis DNA (PCR) B.parapertussis DNA PCR Coronavirus OC43 (PCR) Coronavirus HKU1 (PCR) Coronavirus 229E (PCR) SARS-CoV-2 (PCR) Coronavirus NL63 (PCR) Human Metapneumovir PCR Influenza Type A (PCR) Influenza Type B (PCR) M. pneumoniae (PCR) Parainfluenza 1 (PCR) Parainfluenza 2 (PCR) Parainfluenza 3 (PCR) Parainfluenza 4 (PCR) RSV (PCR) Entero/Rhino (PCR) 04/03/21 04/03/21 04/03/21 13:19 15:00 17:30 WBC RBC Hgb Hct MCV MCH MCHC RDW Plt Count Neut % (Auto) Lymph % (Auto) [place] % (Auto) Eos % (Auto) Baso % (Auto) Neut # (Auto) Lymph # (Auto) [place] # (Auto) Eos # (Auto) Baso # (Auto) VBG pH 7.25 L VBG pCO2 20.8 L VBG pO2 35 VBG HCO3 9 L VBG Total CO2 10 L VBG O2 Saturation 61 L VBG Base Excess -18.0 L Sodium 142 141 Potassium 4.4 4.0 Chloride 113 H 115 H Carbon Dioxide 11 L 15 L BUN 23 H 21 H Creatinine 1.02 0.90 Estimated GFR > 60.0 > 60.0 BUN/Creatinine Ratio 22.5 H 23.3 H Glucose 218 H D 149 H Hemoglobin A1c Lactate Calcium 9.1 8.6 Total Bilirubin AST ALT Alkaline Phosphatase Total Protein Albumin Globulin Albumin/Globulin Ratio Procalcitonin Urine Color Urine Appearance Urine pH Ur Specific [place] Urine Protein Urine Glucose (UA) Urine Ketones Urine Occult Blood Urine Nitrate Urine Bilirubin Urine Urobilinogen Ur Leukocyte Esterase Urine RBC Urine WBC Ur Squamous Epith Cells Urine Bacteria Ur Culture Indicated? Nasal Screen MRSA (PCR) Ketones Chlamy pneumoniae PCR Adenovirus (PCR) B. pertussis DNA (PCR) B.parapertussis DNA PCR Coronavirus OC43 (PCR) Coronavirus HKU1 (PCR) Coronavirus 229E (PCR) SARS-CoV-2 (PCR) Coronavirus NL63 (PCR) Human Metapneumovir PCR Influenza Type A (PCR) Influenza Type B (PCR) M. pneumoniae (PCR) Parainfluenza 1 (PCR) Parainfluenza 2 (PCR) Parainfluenza 3 (PCR) Parainfluenza 4 (PCR) RSV (PCR) Entero/Rhino (PCR) 04/03/21 04/03/21 04/03/21 21:40 21:40 21:40 WBC RBC Hgb Hct MCV MCH MCHC RDW Plt Count Neut % (Auto) Lymph % (Auto) [place] % (Auto) Eos % (Auto) Baso % (Auto) Neut # (Auto) Lymph # (Auto) [place] # (Auto) Eos # (Auto) Baso # (Auto) VBG pH VBG pCO2 VBG pO2 VBG HCO3 VBG Total CO2 VBG O2 Saturation VBG Base Excess Sodium 140 Potassium 3.8 Chloride 115 H Carbon Dioxide 20 L BUN 19 Creatinine 0.78 Estimated GFR > 60.0 BUN/Creatinine Ratio 24.4 H Glucose 131 H Hemoglobin A1c 6.1 H Lactate Calcium 8.8 Total Bilirubin AST ALT Alkaline Phosphatase Total Protein Albumin Globulin Albumin/Globulin Ratio Procalcitonin Urine Color Urine Appearance Urine pH Ur Specific [place] Urine Protein Urine Glucose (UA) Urine Ketones Urine Occult Blood Urine Nitrate Urine Bilirubin Urine Urobilinogen Ur Leukocyte Esterase Urine RBC Urine WBC Ur Squamous Epith Cells Urine Bacteria Ur Culture Indicated? Nasal Screen MRSA (PCR) Ketones 0.86 H Chlamy pneumoniae PCR Adenovirus (PCR) B. pertussis DNA (PCR) B.parapertussis DNA PCR Coronavirus OC43 (PCR) Coronavirus HKU1 (PCR) Coronavirus 229E (PCR) SARS-CoV-2 (PCR) Coronavirus NL63 (PCR) Human Metapneumovir PCR Influenza Type A (PCR) Influenza Type B (PCR) M. pneumoniae (PCR) Parainfluenza 1 (PCR) Parainfluenza 2 (PCR) Parainfluenza 3 (PCR) Parainfluenza 4 (PCR) RSV (PCR) Entero/Rhino (PCR) 04/03/21 04/04/21 04/04/21 22:52 05:30 05:30 WBC 21.0 H RBC 3.84 L Hgb 11.6 L Hct 35.1 L MCV 91.2 D MCH 30.1 MCHC 33.0 RDW 14.1 Plt Count 408 H Neut % (Auto) 92.0 H Lymph % (Auto) 3.4 L [place] % (Auto) 4.4 Eos % (Auto) 0.0 L Baso % (Auto) 0.2 Neut # (Auto) 24468 H Lymph # (Auto) 700 L [place] # (Auto) 900 Eos # (Auto) 0 Baso # (Auto) 0 VBG pH 7.33 VBG pCO2 34.7 L VBG pO2 40 VBG HCO3 18 L VBG Total CO2 19 L VBG O2 Saturation 71 VBG Base Excess -7.0 L Sodium 138 Potassium 4.3 Chloride 107 Carbon Dioxide 10 L BUN 18 Creatinine 0.83 Estimated GFR > 60.0 BUN/Creatinine Ratio 21.7 Glucose 368 H D Hemoglobin A1c Lactate Calcium 9.0 Total Bilirubin 0.8 AST 30 ALT 24 Alkaline Phosphatase 82 D Total Protein 6.7 Albumin 4.3 Globulin 2.4 Albumin/Globulin Ratio 1.8 Procalcitonin Urine Color Urine Appearance Urine pH Ur Specific [place] Urine Protein Urine Glucose (UA) Urine Ketones Urine Occult Blood Urine Nitrate Urine Bilirubin Urine Urobilinogen Ur Leukocyte Esterase Urine RBC Urine WBC Ur Squamous Epith Cells Urine Bacteria Ur Culture Indicated? Nasal Screen MRSA (PCR) Ketones Chlamy pneumoniae PCR Adenovirus (PCR) B. pertussis DNA (PCR) B.parapertussis DNA PCR Coronavirus OC43 (PCR) Coronavirus HKU1 (PCR) Coronavirus 229E (PCR) SARS-CoV-2 (PCR) Coronavirus NL63 (PCR) Human Metapneumovir PCR Influenza Type A (PCR) Influenza Type B (PCR) M. pneumoniae (PCR) Parainfluenza 1 (PCR) Parainfluenza 2 (PCR) Parainfluenza 3 (PCR) Parainfluenza 4 (PCR) RSV (PCR) Entero/Rhino (PCR) 04/04/21 05:30 WBC RBC Hgb Hct MCV MCH MCHC RDW Plt Count Neut % (Auto) Lymph % (Auto) [place] % (Auto) Eos % (Auto) Baso % (Auto) Neut # (Auto) Lymph # (Auto) [place] # (Auto) Eos # (Auto) Baso # (Auto) VBG pH VBG pCO2 VBG pO2 VBG HCO3 VBG Total CO2 VBG O2 Saturation VBG Base Excess Sodium Potassium Chloride Carbon Dioxide BUN Creatinine Estimated GFR BUN/Creatinine Ratio Glucose Hemoglobin A1c Lactate Calcium Total Bilirubin AST ALT Alkaline Phosphatase Total Protein Albumin Globulin Albumin/Globulin Ratio Procalcitonin Urine Color Urine Appearance Urine pH Ur Specific [place] Urine Protein Urine Glucose (UA) Urine Ketones Urine Occult Blood Urine Nitrate Urine Bilirubin Urine Urobilinogen Ur Leukocyte Esterase Urine RBC Urine WBC Ur Squamous Epith Cells Urine Bacteria Ur Culture Indicated? Nasal Screen MRSA (PCR) Ketones 8.44 H Chlamy pneumoniae PCR Adenovirus (PCR) B. pertussis DNA (PCR) B.parapertussis DNA PCR Coronavirus OC43 (PCR) Coronavirus HKU1 (PCR) Coronavirus 229E (PCR) SARS-CoV-2 (PCR) Coronavirus NL63 (PCR) Human Metapneumovir PCR Influenza Type A (PCR) Influenza Type B (PCR) M. pneumoniae (PCR) Parainfluenza 1 (PCR) Parainfluenza 2 (PCR) Parainfluenza 3 (PCR) Parainfluenza 4 (PCR) RSV (PCR) Entero/Rhino (PCR) [facility] Medical History Type 1 diabetes Social History household members: family Smoking Status: Current every day smoker Assessment & Plan Assessment & Plan narrative: PROBLEM LIST ?DKA.? CONTINUE ON INSULIN DRIP ?DUODENITIS/ GASTROENTERITIS? /FOOD POISONING.? ON ANTIBIOTICS ?POSSIBLE SEPSIS.? PRESENT ON ARRIVAL. ? WITH? ORGAN DYSFUNCTION. ?LEUKOCYTOSIS. SLIGHT IMPROVEMENT ?ACUTE KIDNEY INJURY.? APPEARED TO BE PRERENAL. RESOLVED ?SEVERE DEHYDRATION / INTRAVASCULAR FLUID DEPLETION. IMPROVED ?THROMBOCYTOSIS.? LIKELY ACUTE REACTANT. IMPROVED ?POSSIBLE FATTY LIVER DISEASE.? COULD BE FURTHER FOLLOWED OUTPATIENT ?HYPERKALEMIA.? MONITOR ONLY FOR NOW. ?RECOMMENDATIONS 04/04 RECOMMENDATIONS PATIENT WAS TAKEN OFF INSULIN DRIP OVERNIGHT HOWEVER HIS ANION GAP IS CLOSE TO 20 THIS MORNING PER LABS STARTED BACK ON INSULIN DRIP CONTINUE IV FLUID NEEDED MEDICATIONS ORDERED TREAT CURRENT SYMPTOMS CONTINUING CLEAR LIQUID DIET FOR NOW MONITOR INPUT AND OUTPUT CLOSELY MONITOR ELECTROLYTE CLOSELY WELL SERIAL BASIC METABOLIC PANEL LABS ORDERED Q.4 HOURS FOR TODAY HOLD LANTUS AND SLIDING SCALE WERE ORDERED CONSIDER ABG TO EVALUATE FOR ACID-BASE DISTURBANCE OF SIGNIFICANCE HOWEVER, REASONABLE TO HOLD ON DOING ABG FOR NOW CHECK LACTATE OR PROCALCITONIN IF INDICATED WILL CONTINUE CURRENT ANTIBIOTICS WELL SOME IMPROVEMENT NOTED IN HIS LABS OVERNIGHT DAILY LABS ORDERED ADDITIONAL MANAGEMENT PER CLINICAL COURSE WILL CONTINUE TO FOLLOW WITH YOU 04/03 ?CONTINUE? INSULIN DRIP FOR NOW ? Q 4 HOURS BASIC METABOLIC PANEL ORDERED TO EVALUATE ANION GAP /ACIDOSIS ?AGGRESSIVE IV REHYDRATION ?CHANGE TO D5 NORMAL SALINE ONCE BLOOD SUGAR IS LESS THAN 250 IF GAP PERSIST ?MONITOR PHOSPHORUS? AND OTHER ELECTROLYTES ? CLOSELY ?SERIAL ABG TO FOLLOW INDICATED ?AVOID NEPHROTOXINS ?MONITOR INPUT AND OUTPUT CLOSELY ?PATIENT STARTED ON ABX? WITH? ROCEPHIN AND FLAGYL ?WOULD? ORDER STOOL STUDIES IF DIARRHEA DEVELOPS ?HYPERKALEMIA NOTED ON ADMISSION. ?HOWEVER NO ACUTE TREATMENT INDICATED ?NO ARRHYTHMIA NOTED ON TELEMETRY ?SHOULD RESOLVE WITH CORRECTION OF THE DKA ?WE APPRECIATE THIS KIND CONSULT ?WILL GLADLY FOLLOW WITH YOU Time Spent With Patient Critical Care time: I spent a total of [] minutes of critical care time on this patient's care today; this time is exclusive of procedural time.
[2021-04-04] MEDS: INSULIN DRIP PREMIX 100 UNIT/100 ML PLAST..BAG 10 UNIT IV (07:30)
--- NOTE | 2021-04-04 08:24 | P.PN_ITS ---
Subjective Subjective Date Patient Seen: 04/04/21 Time Patient Seen: 08:24 Interval history: Chief complaint: I feel nauseous Back on insulin drip this morning, still nauseous overnight and unable to eat anything really. Anxious this morning and still not much appetite. Appreciate hospitalist input. Exam Vital Signs (past 8 hours): - 04/04/21 04:29 Temperature 98.0 F Pulse Rate 90 Respiratory Rate 16 Blood Pressure 131/66 Pulse Oximetry 100 Oxygen Delivery Method Room Air Oxygen Flow Rate 0 Narrative Exam Narrative: ill appearing chap sitting tailor fashion trying to get comfortable Const General: ill appearing HENMT Other: Eyes General: appearance normal, both eyes and all related structures Resp Other: clear to auscultation bilaterally Cardio Other: regular rate and rhythm S1/S2 GI Other: soft nontender active bowel sounds Skin General: no rashes or lesions noted Neuro General: patient alert, patient awake, patient oriented x3 and moves all extremities Extrem General: full ROM Psych Appearance: grossly normal Other: anxious Objective Labs Result Diagrams: 04/04/21 05:30 04/04/21 13:00 Labs: Laboratory Results - last 24 hr 04/03/21 04/03/21 04/03/21 07:45 07:45 08:10 WBC RBC Hgb Hct MCV MCH MCHC RDW Plt Count Neut % (Auto) Lymph % (Auto) [place] % (Auto) Eos % (Auto) Baso % (Auto) Neut # (Auto) Lymph # (Auto) [place] # (Auto) Eos # (Auto) Baso # (Auto) VBG pH 7.11 L* VBG pCO2 19.0 L VBG pO2 54 H VBG HCO3 6 L VBG Total CO2 7 L VBG O2 Saturation 77 H VBG Base Excess -23.0 L Sodium 134 L Potassium 5.6 H Chloride 97 L Carbon Dioxide < 5 L* BUN 29 H Creatinine 1.45 H Estimated GFR 55.7 L BUN/Creatinine Ratio 20.0 Glucose 640 H* Hemoglobin A1c Lactate 4.0 H Calcium 10.0 Total Bilirubin 0.6 AST 29 ALT 29 Alkaline Phosphatase 138 H Total Protein 8.9 H Albumin 5.4 H Globulin 3.5 Albumin/Globulin Ratio 1.5 Procalcitonin 3.91 H Urine Color Urine Appearance Urine pH Ur Specific [place] Urine Protein Urine Glucose (UA) Urine Ketones Urine Occult Blood Urine Nitrate Urine Bilirubin Urine Urobilinogen Ur Leukocyte Esterase Urine RBC Urine WBC Ur Squamous Epith Cells Urine Bacteria Ur Culture Indicated? Nasal Screen MRSA (PCR) Ketones 10.60 H Chlamy pneumoniae PCR Adenovirus (PCR) B. pertussis DNA (PCR) B.parapertussis DNA PCR Coronavirus OC43 (PCR) Coronavirus HKU1 (PCR) Coronavirus 229E (PCR) SARS-CoV-2 (PCR) Coronavirus NL63 (PCR) Human Metapneumovir PCR Influenza Type A (PCR) Influenza Type B (PCR) M. pneumoniae (PCR) Parainfluenza 1 (PCR) Parainfluenza 2 (PCR) Parainfluenza 3 (PCR) Parainfluenza 4 (PCR) RSV (PCR) Entero/Rhino (PCR) 04/03/21 04/03/21 04/03/21 08:10 09:40 10:45 WBC RBC Hgb Hct MCV MCH MCHC RDW Plt Count Neut % (Auto) Lymph % (Auto) [place] % (Auto) Eos % (Auto) Baso % (Auto) Neut # (Auto) Lymph # (Auto) [place] # (Auto) Eos # (Auto) Baso # (Auto) VBG pH VBG pCO2 VBG pO2 VBG HCO3 VBG Total CO2 VBG O2 Saturation VBG Base Excess Sodium 140 Potassium 5.3 H Chloride 107 Carbon Dioxide < 5 L* BUN 28 H Creatinine 1.20 Estimated GFR > 60.0 BUN/Creatinine Ratio 23.3 H Glucose 365 H D Hemoglobin A1c Lactate Calcium 9.4 Total Bilirubin AST ALT Alkaline Phosphatase Total Protein Albumin Globulin Albumin/Globulin Ratio Procalcitonin Urine Color Yellow Urine Appearance Clear Urine pH 5.0 Ur Specific [place] 1.025 Urine Protein Negative Urine Glucose (UA) 1+ H Urine Ketones 3+ H Urine Occult Blood 1+ H Urine Nitrate Negative Urine Bilirubin Negative Urine Urobilinogen 0.2 Ur Leukocyte Esterase Negative Urine RBC 0-1/hpf Urine WBC None seen Ur Squamous Epith Cells None seen Urine Bacteria None seen Ur Culture Indicated? Cult not indicated Nasal Screen MRSA (PCR) Ketones Chlamy pneumoniae PCR Not detected Adenovirus (PCR) Not detected B. pertussis DNA (PCR) Not detected B.parapertussis DNA PCR Not detected Coronavirus OC43 (PCR) Not detected Coronavirus HKU1 (PCR) Not detected Coronavirus 229E (PCR) Not detected SARS-CoV-2 (PCR) Not detected Coronavirus NL63 (PCR) Not detected Human Metapneumovir PCR Not detected Influenza Type A (PCR) Not detected Influenza Type B (PCR) Not detected M. pneumoniae (PCR) Not detected Parainfluenza 1 (PCR) Not detected Parainfluenza 2 (PCR) Not detected Parainfluenza 3 (PCR) Not detected Parainfluenza 4 (PCR) Not detected RSV (PCR) Not detected Entero/Rhino (PCR) Not detected 04/03/21 04/03/21 04/03/21 10:55 12:16 13:19 WBC RBC Hgb Hct MCV MCH MCHC RDW Plt Count Neut % (Auto) Lymph % (Auto) [place] % (Auto) Eos % (Auto) Baso % (Auto) Neut # (Auto) Lymph # (Auto) [place] # (Auto) Eos # (Auto) Baso # (Auto) VBG pH 7.25 L VBG pCO2 20.8 L VBG pO2 35 VBG HCO3 9 L VBG Total CO2 10 L VBG O2 Saturation 61 L VBG Base Excess -18.0 L Sodium Potassium Chloride Carbon Dioxide BUN Creatinine Estimated GFR BUN/Creatinine Ratio Glucose Hemoglobin A1c Lactate 1.8 Calcium Total Bilirubin AST ALT Alkaline Phosphatase Total Protein Albumin Globulin Albumin/Globulin Ratio Procalcitonin Urine Color Urine Appearance Urine pH Ur Specific [place] Urine Protein Urine Glucose (UA) Urine Ketones Urine Occult Blood Urine Nitrate Urine Bilirubin Urine Urobilinogen Ur Leukocyte Esterase Urine RBC Urine WBC Ur Squamous Epith Cells Urine Bacteria Ur Culture Indicated? Nasal Screen MRSA (PCR) Negative for mrsa Ketones Chlamy pneumoniae PCR Adenovirus (PCR) B. pertussis DNA (PCR) B.parapertussis DNA PCR Coronavirus OC43 (PCR) Coronavirus HKU1 (PCR) Coronavirus 229E (PCR) SARS-CoV-2 (PCR) Coronavirus NL63 (PCR) Human Metapneumovir PCR Influenza Type A (PCR) Influenza Type B (PCR) M. pneumoniae (PCR) Parainfluenza 1 (PCR) Parainfluenza 2 (PCR) Parainfluenza 3 (PCR) Parainfluenza 4 (PCR) RSV (PCR) Entero/Rhino (PCR) 04/03/21 04/03/21 04/03/21 15:00 17:30 21:40 WBC RBC Hgb Hct MCV MCH MCHC RDW Plt Count Neut % (Auto) Lymph % (Auto) [place] % (Auto) Eos % (Auto) Baso % (Auto) Neut # (Auto) Lymph # (Auto) [place] # (Auto) Eos # (Auto) Baso # (Auto) VBG pH VBG pCO2 VBG pO2 VBG HCO3 VBG Total CO2 VBG O2 Saturation VBG Base Excess Sodium 142 141 140 Potassium 4.4 4.0 3.8 Chloride 113 H 115 H 115 H Carbon Dioxide 11 L 15 L 20 L BUN 23 H 21 H 19 Creatinine 1.02 0.90 0.78 Estimated GFR > 60.0 > 60.0 > 60.0 BUN/Creatinine Ratio 22.5 H 23.3 H 24.4 H Glucose 218 H D 149 H 131 H Hemoglobin A1c Lactate Calcium 9.1 8.6 8.8 Total Bilirubin AST ALT Alkaline Phosphatase Total Protein Albumin Globulin Albumin/Globulin Ratio Procalcitonin Urine Color Urine Appearance Urine pH Ur Specific [place] Urine Protein Urine Glucose (UA) Urine Ketones Urine Occult Blood Urine Nitrate Urine Bilirubin Urine Urobilinogen Ur Leukocyte Esterase Urine RBC Urine WBC Ur Squamous Epith Cells Urine Bacteria Ur Culture Indicated? Nasal Screen MRSA (PCR) Ketones Chlamy pneumoniae PCR Adenovirus (PCR) B. pertussis DNA (PCR) B.parapertussis DNA PCR Coronavirus OC43 (PCR) Coronavirus HKU1 (PCR) Coronavirus 229E (PCR) SARS-CoV-2 (PCR) Coronavirus NL63 (PCR) Human Metapneumovir PCR Influenza Type A (PCR) Influenza Type B (PCR) M. pneumoniae (PCR) Parainfluenza 1 (PCR) Parainfluenza 2 (PCR) Parainfluenza 3 (PCR) Parainfluenza 4 (PCR) RSV (PCR) Entero/Rhino (PCR) 04/03/21 04/03/21 04/03/21 21:40 21:40 22:52 WBC RBC Hgb Hct MCV MCH MCHC RDW Plt Count Neut % (Auto) Lymph % (Auto) [place] % (Auto) Eos % (Auto) Baso % (Auto) Neut # (Auto) Lymph # (Auto) [place] # (Auto) Eos # (Auto) Baso # (Auto) VBG pH 7.33 VBG pCO2 34.7 L VBG pO2 40 VBG HCO3 18 L VBG Total CO2 19 L VBG O2 Saturation 71 VBG Base Excess -7.0 L Sodium Potassium Chloride Carbon Dioxide BUN Creatinine Estimated GFR BUN/Creatinine Ratio Glucose Hemoglobin A1c 6.1 H Lactate Calcium Total Bilirubin AST ALT Alkaline Phosphatase Total Protein Albumin Globulin Albumin/Globulin Ratio Procalcitonin Urine Color Urine Appearance Urine pH Ur Specific [place] Urine Protein Urine Glucose (UA) Urine Ketones Urine Occult Blood Urine Nitrate Urine Bilirubin Urine Urobilinogen Ur Leukocyte Esterase Urine RBC Urine WBC Ur Squamous Epith Cells Urine Bacteria Ur Culture Indicated? Nasal Screen MRSA (PCR) Ketones 0.86 H Chlamy pneumoniae PCR Adenovirus (PCR) B. pertussis DNA (PCR) B.parapertussis DNA PCR Coronavirus OC43 (PCR) Coronavirus HKU1 (PCR) Coronavirus 229E (PCR) SARS-CoV-2 (PCR) Coronavirus NL63 (PCR) Human Metapneumovir PCR Influenza Type A (PCR) Influenza Type B (PCR) M. pneumoniae (PCR) Parainfluenza 1 (PCR) Parainfluenza 2 (PCR) Parainfluenza 3 (PCR) Parainfluenza 4 (PCR) RSV (PCR) Entero/Rhino (PCR) 04/04/21 04/04/21 04/04/21 05:30 05:30 05:30 WBC 21.0 H RBC 3.84 L Hgb 11.6 L Hct 35.1 L MCV 91.2 D MCH 30.1 MCHC 33.0 RDW 14.1 Plt Count 408 H Neut % (Auto) 92.0 H Lymph % (Auto) 3.4 L [place] % (Auto) 4.4 Eos % (Auto) 0.0 L Baso % (Auto) 0.2 Neut # (Auto) 11623 H Lymph # (Auto) 700 L [place] # (Auto) 900 Eos # (Auto) 0 Baso # (Auto) 0 VBG pH VBG pCO2 VBG pO2 VBG HCO3 VBG Total CO2 VBG O2 Saturation VBG Base Excess Sodium 138 Potassium 4.3 Chloride 107 Carbon Dioxide 10 L BUN 18 Creatinine 0.83 Estimated GFR > 60.0 BUN/Creatinine Ratio 21.7 Glucose 368 H D Hemoglobin A1c Lactate Calcium 9.0 Total Bilirubin 0.8 AST 30 ALT 24 Alkaline Phosphatase 82 D Total Protein 6.7 Albumin 4.3 Globulin 2.4 Albumin/Globulin Ratio 1.8 Procalcitonin Urine Color Urine Appearance Urine pH Ur Specific [place] Urine Protein Urine Glucose (UA) Urine Ketones Urine Occult Blood Urine Nitrate Urine Bilirubin Urine Urobilinogen Ur Leukocyte Esterase Urine RBC Urine WBC Ur Squamous Epith Cells Urine Bacteria Ur Culture Indicated? Nasal Screen MRSA (PCR) Ketones 8.44 H Chlamy pneumoniae PCR Adenovirus (PCR) B. pertussis DNA (PCR) B.parapertussis DNA PCR Coronavirus OC43 (PCR) Coronavirus HKU1 (PCR) Coronavirus 229E (PCR) SARS-CoV-2 (PCR) Coronavirus NL63 (PCR) Human Metapneumovir PCR Influenza Type A (PCR) Influenza Type B (PCR) M. pneumoniae (PCR) Parainfluenza 1 (PCR) Parainfluenza 2 (PCR) Parainfluenza 3 (PCR) Parainfluenza 4 (PCR) RSV (PCR) Entero/Rhino (PCR) [facility] Medical History Type 1 diabetes Social History household members: family Smoking Status: Current every day smoker Assessment & Plan Assessment & Plan narrative: 35-year-old male with insulin-dependent diabetes admitted for diabetic ketoacidosis #Diabetic ketoacidosis- Gap closed then reopened up, back on drip, continue till he is BMP gap closed x2 encourage PO he is not eating much.? Continue with IV fluids to correct dehydration and to correct electrolyte abnormalities. #Acute dehydration improved, continue with IV fluids #Vomiting.? Infectious vs inflammatory vs possibly cannabis hyperemesis syndrome.? CT scan showed inflammation in the small intestines which could just be due to the amount of vomiting he was having. decrease appetite today he is in withdrawal likely. prn ativan for anxiety, antiemetics prn. #leukocytosis improving somewhat today but still elevated, on ceftriaxone and the Flagyl. Continue supporting nausea with Zofran.? Will continue with IV fluids and correcting the dehydration. Code status is full code. Time Spent With Patient Critical Care time: I spent a total of [] minutes of critical care time on this patient's care today; this time is exclusive of procedural time.
[2021-04-04 08:50] VITALS: PULSE 87; RESP 25; O2SAT 100
--- NOTE | 2021-04-04 09:43 | P.TELICUPN_ITS ---
Subjective Subjective :: This patient was seen via real time interactive two-way audiovisual telecommunication. feels better this am tolerating po Current Medications Current Medications Medications: Home Medications No Known Home Medications 04/03/21 [History Confirmed 04/03/21] Visit Medications (administered) Generic Name Dose Route Start Last Admin Trade Name Freq PRN Reason Stop Dose Admin Diphenhydramine HCl 12.5 mg 04/03/21 13:07 04/04/21 02:10 Diphenhydramine 50 Mg/Ml Vial IV 12.5 mg Q6HR PRN Administration NAUSEA/VOMITING Sodium Chloride 1,000 mls @ 150 mls/hr 04/03/21 12:15 04/03/21 23:44 Normal Saline 0.9% IV Infused CONT OSMAR Infusion Metronidazole 500 mg in 100 mls @ 100 mls/hr 04/03/21 14:00 04/04/21 06:36 Flagyl IV Infused Q8H OSMAR Infusion Insulin Glargine 30 unit 04/03/21 22:30 04/03/21 22:52 Insulin Glargine 100 Unit/Ml 3ml Pen SUBCUT 30 unit BEDTIME OSMAR Administration Lactobacillus Acidophilus 1 each 04/03/21 17:00 04/03/21 16:40 Lactobacillus Acidophilus Tablet PO 1 each TIDWM OSMAR Administration Ondansetron HCl 4 mg 04/03/21 16:39 04/03/21 23:20 Ondansetron 4 Mg/2 Ml Inj IV 4 mg Q4HR PRN Administration Nausea And Vomiting Objective Labs Result Diagrams: 04/04/21 05:30 04/04/21 05:30 Labs: Laboratory Results - last 24 hr 04/03/21 04/03/21 04/03/21 09:40 10:45 10:55 WBC RBC Hgb Hct MCV MCH MCHC RDW Plt Count Neut % (Auto) Lymph % (Auto) [place] % (Auto) Eos % (Auto) Baso % (Auto) Neut # (Auto) Lymph # (Auto) [place] # (Auto) Eos # (Auto) Baso # (Auto) VBG pH VBG pCO2 VBG pO2 VBG HCO3 VBG Total CO2 VBG O2 Saturation VBG Base Excess Sodium 140 Potassium 5.3 H Chloride 107 Carbon Dioxide < 5 L* BUN 28 H Creatinine 1.20 Estimated GFR > 60.0 BUN/Creatinine Ratio 23.3 H Glucose 365 H D Hemoglobin A1c Lactate 1.8 Calcium 9.4 Total Bilirubin AST ALT Alkaline Phosphatase Total Protein Albumin Globulin Albumin/Globulin Ratio Urine Color Yellow Urine Appearance Clear Urine pH 5.0 Ur Specific [place] 1.025 Urine Protein Negative Urine Glucose (UA) 1+ H Urine Ketones 3+ H Urine Occult Blood 1+ H Urine Nitrate Negative Urine Bilirubin Negative Urine Urobilinogen 0.2 Ur Leukocyte Esterase Negative Urine RBC 0-1/hpf Urine WBC None seen Ur Squamous Epith Cells None seen Urine Bacteria None seen Ur Culture Indicated? Cult not indicated Nasal Screen MRSA (PCR) Ketones 04/03/21 04/03/21 04/03/21 12:16 13:19 15:00 WBC RBC Hgb Hct MCV MCH MCHC RDW Plt Count Neut % (Auto) Lymph % (Auto) [place] % (Auto) Eos % (Auto) Baso % (Auto) Neut # (Auto) Lymph # (Auto) [place] # (Auto) Eos # (Auto) Baso # (Auto) VBG pH 7.25 L VBG pCO2 20.8 L VBG pO2 35 VBG HCO3 9 L VBG Total CO2 10 L VBG O2 Saturation 61 L VBG Base Excess -18.0 L Sodium 142 Potassium 4.4 Chloride 113 H Carbon Dioxide 11 L BUN 23 H Creatinine 1.02 Estimated GFR > 60.0 BUN/Creatinine Ratio 22.5 H Glucose 218 H D Hemoglobin A1c Lactate Calcium 9.1 Total Bilirubin AST ALT Alkaline Phosphatase Total Protein Albumin Globulin Albumin/Globulin Ratio Urine Color Urine Appearance Urine pH Ur Specific [place] Urine Protein Urine Glucose (UA) Urine Ketones Urine Occult Blood Urine Nitrate Urine Bilirubin Urine Urobilinogen Ur Leukocyte Esterase Urine RBC Urine WBC Ur Squamous Epith Cells Urine Bacteria Ur Culture Indicated? Nasal Screen MRSA (PCR) Negative for mrsa Ketones 04/03/21 04/03/21 04/03/21 17:30 21:40 21:40 WBC RBC Hgb Hct MCV MCH MCHC RDW Plt Count Neut % (Auto) Lymph % (Auto) [place] % (Auto) Eos % (Auto) Baso % (Auto) Neut # (Auto) Lymph # (Auto) [place] # (Auto) Eos # (Auto) Baso # (Auto) VBG pH VBG pCO2 VBG pO2 VBG HCO3 VBG Total CO2 VBG O2 Saturation VBG Base Excess Sodium 141 140 Potassium 4.0 3.8 Chloride 115 H 115 H Carbon Dioxide 15 L 20 L BUN 21 H 19 Creatinine 0.90 0.78 Estimated GFR > 60.0 > 60.0 BUN/Creatinine Ratio 23.3 H 24.4 H Glucose 149 H 131 H Hemoglobin A1c Lactate Calcium 8.6 8.8 Total Bilirubin AST ALT Alkaline Phosphatase Total Protein Albumin Globulin Albumin/Globulin Ratio Urine Color Urine Appearance Urine pH Ur Specific [place] Urine Protein Urine Glucose (UA) Urine Ketones Urine Occult Blood Urine Nitrate Urine Bilirubin Urine Urobilinogen Ur Leukocyte Esterase Urine RBC Urine WBC Ur Squamous Epith Cells Urine Bacteria Ur Culture Indicated? Nasal Screen MRSA (PCR) Ketones 0.86 H 04/03/21 04/03/21 04/04/21 21:40 22:52 05:30 WBC RBC Hgb Hct MCV MCH MCHC RDW Plt Count Neut % (Auto) Lymph % (Auto) [place] % (Auto) Eos % (Auto) Baso % (Auto) Neut # (Auto) Lymph # (Auto) [place] # (Auto) Eos # (Auto) Baso # (Auto) VBG pH 7.33 VBG pCO2 34.7 L VBG pO2 40 VBG HCO3 18 L VBG Total CO2 19 L VBG O2 Saturation 71 VBG Base Excess -7.0 L Sodium 138 Potassium 4.3 Chloride 107 Carbon Dioxide 10 L BUN 18 Creatinine 0.83 Estimated GFR > 60.0 BUN/Creatinine Ratio 21.7 Glucose 368 H D Hemoglobin A1c 6.1 H Lactate Calcium 9.0 Total Bilirubin 0.8 AST 30 ALT 24 Alkaline Phosphatase 82 D Total Protein 6.7 Albumin 4.3 Globulin 2.4 Albumin/Globulin Ratio 1.8 Urine Color Urine Appearance Urine pH Ur Specific [place] Urine Protein Urine Glucose (UA) Urine Ketones Urine Occult Blood Urine Nitrate Urine Bilirubin Urine Urobilinogen Ur Leukocyte Esterase Urine RBC Urine WBC Ur Squamous Epith Cells Urine Bacteria Ur Culture Indicated? Nasal Screen MRSA (PCR) Ketones 04/04/21 04/04/21 05:30 05:30 WBC 21.0 H RBC 3.84 L Hgb 11.6 L Hct 35.1 L MCV 91.2 D MCH 30.1 MCHC 33.0 RDW 14.1 Plt Count 408 H Neut % (Auto) 92.0 H Lymph % (Auto) 3.4 L [place] % (Auto) 4.4 Eos % (Auto) 0.0 L Baso % (Auto) 0.2 Neut # (Auto) 61088 H Lymph # (Auto) 700 L [place] # (Auto) 900 Eos # (Auto) 0 Baso # (Auto) 0 VBG pH VBG pCO2 VBG pO2 VBG HCO3 VBG Total CO2 VBG O2 Saturation VBG Base Excess Sodium Potassium Chloride Carbon Dioxide BUN Creatinine Estimated GFR BUN/Creatinine Ratio Glucose Hemoglobin A1c Lactate Calcium Total Bilirubin AST ALT Alkaline Phosphatase Total Protein Albumin Globulin Albumin/Globulin Ratio Urine Color Urine Appearance Urine pH Ur Specific [place] Urine Protein Urine Glucose (UA) Urine Ketones Urine Occult Blood Urine Nitrate Urine Bilirubin Urine Urobilinogen Ur Leukocyte Esterase Urine RBC Urine WBC Ur Squamous Epith Cells Urine Bacteria Ur Culture Indicated? Nasal Screen MRSA (PCR) Ketones 8.44 H Exam Vital Signs (past 8 hours): - 04/04/21 04:29 Temperature 98.0 F Pulse Rate 90 Respiratory Rate 16 Blood Pressure 131/66 Pulse Oximetry 100 Oxygen Delivery Method Room Air Oxygen Flow Rate 0 Assessment & Plan Assessment & Plan narrative: Assessment & Plan narrative: patient seen and examined with bedside nurse chart/labs/imaging reviewed 35 year old male with PMhx of DM1 with DKA dehydration hyperkaemia small bowel inflammation remains on insulin drip due to ag high bicarb low plan -resume dka protocol, would get 2 bmp where ag closed and bicarb above 18 -abx check cxs, can dc tomorrow -check a1c -gi/vdt ppx -pleaser call Tele ICU if condition changes Time Spent With Patient Critical Care time: I spent a total of [] minutes of critical care time on this patient's care today; this time is exclusive of procedural time.
[2021-04-04] MEDS: LACTOBACILLUS ACIDOPHILUS TABLET 1 EACH PO ×2 (10:04→15:51)
[2021-04-04] MEDS: LORazepam 0.5 MG TABLET PO ×2 (10:07→15:51)
[2021-04-04] MEDS: cefTRIAXone 1,000 MG in SODIUM CHLORIDE 0.9% 100 ML 200 ML IV (10:10)
--- NOTE | 2021-04-04 10:37 | DIET.CONS ---
Dietary Consultation Note Admission Date: 04/03/2021 09:54 Assessment: 35y M c excellent control of DM1 (A1c 6.1) admitted for DKA after experiencing a few days of N/V secondary to gastroenteritis. Ht: 177.8 cm Wt: 66.9 kg BMI: 21.1 Last BM: 04/01/21 (04/03/21 10:12) MNA: 10 Hasmukh Score: 22 Diet: 04/04/21 Breakfast Clear Liquid Diet Diet Modifications: Nutrition Percent Meal Consumed 50% 04/04/21 09:39 Labs: RBC 3.84 X10^6/uL (4.5-5.9) L 04/04/21 05:30 Hgb 11.6 g/dL (13.5-17.5) L 04/04/21 05:30 Hct 35.1 % (41-53) L 04/04/21 05:30 Creatinine 0.83 mg/dL (0.66-1.25) 04/04/21 05:30 Hemoglobin A1c 6.1 % (4.0-6.0) H 04/03/21 21:40 Lactate 1.8 mmol/L (0.7-2.1) 04/03/21 10:55 Interventions: None at this time Electronically Signed by: Guillermina Benitez 04/04/21 10:37 Clinical Dietitian [address] [id number]
--- NOTE | 2021-04-04 11:20 | CM.DANOTE ---
DCP: Case received, EMR reviewed and met with patient. Introduced self and role. Was able to obtain some health history from patient prior to his hospitalization. DCP assessment completed with information currently available. Patient is a 35 year old male who admitted yesterday morning to the care of the hospitalist team. PCP: Dr. Nicholson. Payer: confirmed: [facility]. Patient came to the hospital via private vehicle secondary to having nausea and vomiting, as well as shaking and weakness. Patient holds diagnosis of Diabetic ketoacidosis. Patient is type 1 diabetic. His ph was 7.1, and blood sugar had been approximately 570. Met with patient in his room. He is alert and oriented, pleasant. He indicated that he had been at work, and started feeling short of breath, and then, started vomiting. His mother had brought him, he didn't want to go at first. Patient resides in [place] alone, his mother lives nearby. Patient indicated that he has been a diabetic type one since he was about 23. He stated, his blood sugars have been managed well, and have not had problems until now. He is anxious that these symptoms are going to start again. He was attempting to eat some jello. He has been on an insulin drip. Patient confirmed that he has [employer]. He pays out of pocket for the premiums every month. He was worried that his ER visit wouldn't be covered. He is aware that [employer] does cover ER visits. He is employed in [place] at [employer]. P: DCP to continue to follow for any needs. Patient should be able to go home when he is deemed medically stable. 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 No History Provided By Patient,Medical Record Prior Living Arrangements House Household Members family Type of transporation used prior to Drives own vehicle admit Independent with ADL's Yes Is patient alert and oriented? Yes Caregiver for Another No Barriers to Discharge No Discharge Plan Home Transportation Arrangement Mother Referrals Initiated None needed Whiteboard Updated in Patient Room with Yes name and ext. # of Packing And Stamping Machine Operator Review Status In Process Next Review Type Continued Stay Review
[2021-04-04 11:31] LABS: HCO3 VBG 18 mmol/L (23-28); Oxygen Saturation VBG 40 % (70-75); PCO2 VBG 32.2 mmHg (45-50); PO2 VBG 24 mmHg (35-45); Total CO2 VBG 19 mmol/L (24-29)
[2021-04-04 11:35] LABS: BUN Creatinine Ratio 21.5 (6-22); Blood Urea Nitrogen 17 mg/dL (9-20); Calcium 9.2 mg/dL (8.4-10.2); Carbon Dioxide 16 mmol/L (22-32); Chloride 110 mmol/L (98-107); Estimated Glomerular Filt Rate > 60.0 mL/min (>60); Glucose 260 mg/dL (70-100); HEMOLYSIS 33 (0-50); Potassium 3.7 mmol/L (3.4-5.1); Sodium 139 mmol/L (137-145)
[2021-04-04 13:21] LABS: BUN Creatinine Ratio 21.6 (6-22); Blood Urea Nitrogen 16 mg/dL (9-20); Calcium 9.1 mg/dL (8.4-10.2); Carbon Dioxide 21 mmol/L (22-32); Chloride 111 mmol/L (98-107); Estimated Glomerular Filt Rate > 60.0 mL/min (>60); Glucose 206 mg/dL (70-100); HEMOLYSIS < 15 (0-50); Potassium 3.3 mmol/L (3.4-5.1); Sodium 139 mmol/L (137-145)
[2021-04-04] MEDS: POTASSIUM CHLORIDE 20 MEQ TAB 40 MEQ PO ×2 (14:42→21:18)
[2021-04-04] MEDS: ONDANSETRON 4 MG/2 ML INJ IV (15:51)
[2021-04-04 16:20] VITALS: BP 127/75; PULSE 86; RESP 17; TEMP 36.8; O2SAT 100
[2021-04-04] MEDS: INSULIN LISPRO 100 UNIT/ML 3ML VIAL SUBCUT ×2 (17:49→21:27)
[2021-04-04 17:52] LABS: BUN Creatinine Ratio 19.5 (6-22); Blood Urea Nitrogen 15 mg/dL (9-20); Calcium 9.2 mg/dL (8.4-10.2); Carbon Dioxide 22 mmol/L (22-32); Chloride 110 mmol/L (98-107); Estimated Glomerular Filt Rate > 60.0 mL/min (>60); Glucose 152 mg/dL (70-100); HEMOLYSIS < 15 (0-50); Phosphorous 1.9 mg/dL (2.5-4.5); Potassium 3.8 mmol/L (3.4-5.1); Sodium 138 mmol/L (137-145)
[2021-04-04] MEDS: SODIUM,POTASSIUM PHOSPHATES PACKET 2 EACH PO ×2 (19:08→22:33)
[2021-04-04 20:00] VITALS: BP 133/73; PULSE 88; RESP 16; O2SAT 100
[2021-04-04] MEDS: INSULIN GLARGINE 100 UNIT/ML 3ML PEN 30 UNIT SUBCUT (21:26)
[2021-04-04 21:46] VITALS: BP 124/70; PULSE 92; RESP 18; TEMP 36.8; O2SAT 97
[2021-04-04 22:28] LABS: Blood Urea Nitrogen 17 mg/dL (9-20); Calcium 8.7 mg/dL (8.4-10.2); Carbon Dioxide 20 mmol/L (22-32); Chloride 105 mmol/L (98-107); Estimated Glomerular Filt Rate > 60.0 mL/min (>60); Glucose 273 mg/dL (70-100); HEMOLYSIS 43 (0-50); Potassium 3.8 mmol/L (3.4-5.1); Sodium 135 mmol/L (137-145)
[2021-04-05] VITALS (7 sets, daily range): BP systolic 132–143; BP diastolic 78–86; PULSE 80–88; RESP 17–18; TEMP 36.7–37.5; O2SAT 98–100
[2021-04-05] MEDS: metroNIDAZOLE 500 MG/100 ML PIGGYBACK 100 MG IV (05:37)
[2021-04-05 06:00] LABS: Add Manual Diff / Slide Review NO; Basophils Absolute Auto 100 /uL (0-100); Basophils Percent Auto 0.5 % (0-2); Eosinophils Absolute Auto 100 /uL (0-450); Eosinophils Percent Auto 0.7 % (2-4); Hemoglobin 11.5 g/dL (13.5-17.5); Lymphocytes Absolute Auto 2100 /uL (1100-4500); Lymphocytes Percent Auto 15.5 % (25-40); Mean Corpuscular HGB Conc 34.8 % (30-36); Mean Corpuscular Hemoglobin 30.5 PG (26-34); Mean Corpuscular Volume 87.6 fL (80-100); Monocytes Absolute Auto 1000 /uL (0-900); Monocytes Percent Auto 7.7 % (3-14); Neutrophils Absolute Auto 10100 /uL (1500-7000); Neutrophils Percent Auto 75.6 % (50-75); Platelet Count 377 X10^3/uL (150-400); Red Blood Cell Count 3.77 X10^6/uL (4.5-5.9); Red Cell Distribution Width 13.5 % (11.6-14.8); White Blood Cell Count 13.4 X10^3/uL (4.5-11.0)
[2021-04-05 06:12] LABS: Alanine Aminotransferase 25 IU/L (<50); Albumin 3.8 g/dL (3.5-5.0); Albumin Globulin Ratio 1.5 (1.0-2.8); Alkaline Phosphatase 72 U/L (38-126); Aspartate Aminotransferase 33 IU/L (17-59); BUN Creatinine Ratio 26.7 (6-22); Bilirubin Total 1.3 mg/dL (0.2-1.3); Blood Urea Nitrogen 16 mg/dL (9-20); Calcium 8.8 mg/dL (8.4-10.2); Carbon Dioxide 26 mmol/L (22-32); Chloride 106 mmol/L (98-107); Estimated Glomerular Filt Rate > 60.0 mL/min (>60); Globulin 2.6 g/dL (1.7-4.1); Glucose 139 mg/dL (70-100); Magnesium 1.8 mg/dL (1.6-2.3); Sodium 135 mmol/L (137-145); Total Protein 6.4 g/dL (6.3-8.2)
[2021-04-05 06:53] LABS: HEMOLYSIS 61 (0-50)
[2021-04-05 06:54] LABS: Potassium 3.8 mmol/L (3.4-5.1)
[2021-04-05] MEDS: LORazepam 0.5 MG TABLET PO (09:02)
[2021-04-05] MEDS: LACTOBACILLUS ACIDOPHILUS TABLET 1 EACH PO ×3 (09:02→17:43)
[2021-04-05] MEDS: cefTRIAXone 1,000 MG in SODIUM CHLORIDE 0.9% 100 ML 200 ML IV (09:08)
[2021-04-05] MEDS: ONDANSETRON 4 MG/2 ML INJ IV (09:12)
--- NOTE | 2021-04-05 09:53 | PC.NURSE ---
Addendum entered by Nelly Whitman R.N. 04/05/21 18:43: 1800-Pt did better with dinner, 75% and good oral intake. IVF infusing. Urine remains concentrated, but overall Pt is pleased with improvement this shift. Hopeful to d/c home in AM. Enc in room ambulation d/t weakness reported this illness. Addendum entered by Nelly Whitman R.N. 04/05/21 14:52: Pt trialing a bit more PO intake for lunch. Denies nausea but notices continued lack of desire to eat. Discussed marijanua use daily at home, he does not feel this contributes to his continued GI upset/nausea. Restarted NS IVF for dark urine. Original Note: Am shift Pt reports sleeping well overnight helped significantly, less nauseated, CBG 128 this AM. When breakfast tray placed, Pt reported worsening nausea. Zofran given. Pt is anxious and reports improvement in getting settled 04/04 after medicating. Lorazepam given. Pt is able to keep down Jello and chicken broth. IV ABX infusing.
--- NOTE | 2021-04-05 12:23 | PM.PN.1 ---
Subjective Subjective Date Patient Seen: 04/05/21 Interval history: 35-year-old male with well controlled type 1 diabetes admitted due to DKA. Patient has been off of insulin drip since last night with closure of anion gap. Bicarb normal today. He is still having some nausea and not yet tolerating normal diet. His CT scan showed mild inflammation in the small bowel likely acute infectious. Exam Vital Signs (past 8 hours): - 04/05/21 05:00 04/05/21 08:00 Temperature 98.3 F 98.1 F Pulse Rate 85 80 Respiratory Rate 18 17 Blood Pressure 132/80 137/82 Pulse Oximetry 100 98 Oxygen Delivery Method Room Air Oxygen Flow Rate 0 Narrative Exam Narrative: General: Alert pleasant and cooperative male NAD Objective Labs Result Diagrams: 04/05/21 05:35 04/05/21 05:35 Labs: Laboratory Results - last 24 hr 04/04/21 04/04/21 04/04/21 13:00 17:28 17:28 WBC RBC Hgb Hct MCV MCH MCHC RDW Plt Count Neut % (Auto) Lymph % (Auto) [place] % (Auto) Eos % (Auto) Baso % (Auto) Neut # (Auto) Lymph # (Auto) [place] # (Auto) Eos # (Auto) Baso # (Auto) Sodium 139 138 Potassium 3.3 L 3.8 Chloride 111 H 110 H Carbon Dioxide 21 L 22 BUN 16 15 Creatinine 0.74 0.77 Estimated GFR > 60.0 > 60.0 BUN/Creatinine Ratio 21.6 19.5 Glucose 206 H 152 H Calcium 9.1 9.2 Phosphorus 1.9 L Magnesium Total Bilirubin AST ALT Alkaline Phosphatase Total Protein Albumin Globulin Albumin/Globulin Ratio 04/04/21 04/05/21 04/05/21 21:55 05:35 05:35 WBC 13.4 H RBC 3.77 L Hgb 11.5 L Hct 33.0 L MCV 87.6 D MCH 30.5 MCHC 34.8 RDW 13.5 Plt Count 377 Neut % (Auto) 75.6 H Lymph % (Auto) 15.5 L [place] % (Auto) 7.7 Eos % (Auto) 0.7 L Baso % (Auto) 0.5 Neut # (Auto) 95928 H Lymph # (Auto) 2100 [place] # (Auto) 1000 H Eos # (Auto) 100 Baso # (Auto) 100 Sodium 135 L 135 L Potassium 3.8 3.8 Chloride 105 106 Carbon Dioxide 20 L 26 BUN 17 16 Creatinine 0.74 0.60 L Estimated GFR > 60.0 > 60.0 BUN/Creatinine Ratio 23.0 H 26.7 H Glucose 273 H D 139 H D Calcium 8.7 8.8 Phosphorus 2.0 L Magnesium 1.8 Total Bilirubin 1.3 AST 33 ALT 25 Alkaline Phosphatase 72 Total Protein 6.4 Albumin 3.8 Globulin 2.6 Albumin/Globulin Ratio 1.5 PFSH Medical History Type 1 diabetes Social History household members: family Smoking Status: Current every day smoker Assessment & Plan Assessment & Plan narrative: 1. Acute DKA -resolved -continue patient's baseline Lantus and sliding scale insulin (uses Humalog at home) -advanced diet as tolerated 2. Acute enteritis, infection -appears resolving -discontinued IV antibiotics Patient is medically stable in likely needs additional night in hospital before able to go home. Will sign off at this time but please let us know if we need to reassess patient during his hospital stay. Time Spent With Patient Critical Care time: I spent a total of [] minutes of critical care time on this patient's care today; this time is exclusive of procedural time.
[2021-04-05] MEDS: INSULIN LISPRO 100 UNIT/ML 3ML VIAL SUBCUT ×2 (12:55→17:40)
[2021-04-05] MEDS: POTASSIUM PHOSPHATE 15 MMOL in SODIUM CHLORIDE 0.9% 250 ML 63.75 ML IV (14:07)
--- NOTE | 2021-04-05 15:02 | P.PN_ITS ---
Subjective Subjective Date Patient Seen: 04/05/21 Time Patient Seen: 15:02 Interval history: Patient with unremarkable night. He is feeling much better. He is still having difficulty eating significant quantities of food. He is also having some difficulty keeping up on his oral intake. He states that the diffuse shoulder abdominal wall knee muscle pain he was having is gone. He is not having any abdominal pain. He does really feels he can not put a lot in his stomach. He did have vomiting and dry heaves for about 72 hours prior to coming in. He denies any anxiety. Denies any difficulty breathing. He is not having difficulty with bowel movements or urination. Twelve point review of systems is otherwise negative other than HPI Exam Vital Signs (past 8 hours): - 04/05/21 08:00 04/05/21 12:48 Temperature 98.1 F 98.0 F Pulse Rate 80 88 Respiratory Rate 17 18 Blood Pressure 137/82 141/78 H Pulse Oximetry 98 100 Oxygen Delivery Method Room Air Oxygen Flow Rate 0 Narrative Exam Narrative: Afebrile, vital signs are stable HEENT is unremarkable. Lips are dry Neck is supple without adenopathy Chest: Clear to auscultation without wheezes rhonchi or crackles Cor: Regular rate and rhythm without a murmur Abdomen: Positive bowel sounds, soft, nontender, nondistended Extremities: No edema, pulses intact Neurologic exam is nonfocal Objective Labs Result Diagrams: 04/05/21 05:35 04/05/21 05:35 Labs: Laboratory Results - last 24 hr 04/04/21 04/04/21 04/04/21 17:28 17:28 21:55 WBC RBC Hgb Hct MCV MCH MCHC RDW Plt Count Neut % (Auto) Lymph % (Auto) [place] % (Auto) Eos % (Auto) Baso % (Auto) Neut # (Auto) Lymph # (Auto) [place] # (Auto) Eos # (Auto) Baso # (Auto) Sodium 138 135 L Potassium 3.8 3.8 Chloride 110 H 105 Carbon Dioxide 22 20 L BUN 15 17 Creatinine 0.77 0.74 Estimated GFR > 60.0 > 60.0 BUN/Creatinine Ratio 19.5 23.0 H Glucose 152 H 273 H D Calcium 9.2 8.7 Phosphorus 1.9 L Magnesium Total Bilirubin AST ALT Alkaline Phosphatase Total Protein Albumin Globulin Albumin/Globulin Ratio 04/05/21 04/05/21 05:35 05:35 WBC 13.4 H RBC 3.77 L Hgb 11.5 L Hct 33.0 L MCV 87.6 D MCH 30.5 MCHC 34.8 RDW 13.5 Plt Count 377 Neut % (Auto) 75.6 H Lymph % (Auto) 15.5 L [place] % (Auto) 7.7 Eos % (Auto) 0.7 L Baso % (Auto) 0.5 Neut # (Auto) 79478 H Lymph # (Auto) 2100 [place] # (Auto) 1000 H Eos # (Auto) 100 Baso # (Auto) 100 Sodium 135 L Potassium 3.8 Chloride 106 Carbon Dioxide 26 BUN 16 Creatinine 0.60 L Estimated GFR > 60.0 BUN/Creatinine Ratio 26.7 H Glucose 139 H D Calcium 8.8 Phosphorus 2.0 L Magnesium 1.8 Total Bilirubin 1.3 AST 33 ALT 25 Alkaline Phosphatase 72 Total Protein 6.4 Albumin 3.8 Globulin 2.6 Albumin/Globulin Ratio 1.5 PFSH Medical History Type 1 diabetes Social History household members: family Smoking Status: Current every day smoker Assessment & Plan Assessment & Plan narrative: 35-year-old male insulin-dependent diabetes admitted for DKA. Appreciate hospitalist's input. Assessment 1. DKA. Doing well off insulin drip. Plan: Will continue with outpatient insulin. Continue with fluid electrolyte and blood sugar monitoring. I am hopeful that he will be able to be discharged tomorrow depending if he continues with improved p.o. intake. Assessment 2. Acute dehydration secondary to 1. And vomiting. I think he is still dry and we will restart IV fluids. Plan: Will restart normal saline at 150 cc an hour. Will recheck labs in the morning. Assessment 3. Hypophosphatemia Plan: Continue per pharmacy replacement and monitor in Assessment 4. Hyper emesis. Again reviewed differential diagnosis. It does not seem that it is an infectious etiology. The inflammation of the small bowel on CT scan certainly could have been related to the time that he was having dry heaves and vomiting for 72 hours. Could be infectious in nature. He has had 48 hours of IV antibiotics and these have been discontinued. We will re-evaluate in the morning. Discussed that he may likely have cannabis hyperemesis syndrome. The treatment would be continued IV hydration ATN abstaining from marijuana. This was discussed with him. Assessment 5. Leukocytosis of unclear etiology. Does not seem likely to be infectious. It is improving. May simply be due to the stress of illness and at this point his antibiotics have been stopped and we will reassess in the morning Plan: CBC tomorrow. Cultures negative thus far. Assessment 6. Hyponatremia Plan: Will give normal saline. Will reassess tomorrow. Encourage adequate p.o. intake Time Spent With Patient Critical Care time: I spent a total of [] minutes of critical care time on this patient's care today; this time is exclusive of procedural time.
[2021-04-05] MEDS: SODIUM CHLORIDE 0.9% 1,000 ML 150 ML IV (19:00)
[2021-04-05] MEDS: INSULIN GLARGINE 100 UNIT/ML 3ML PEN 30 UNIT SUBCUT (20:57)
[2021-04-06 00:18] VITALS: BP 145/84; PULSE 82; RESP 17; TEMP 36.7; O2SAT 99
[2021-04-06 06:07] LABS: Add Manual Diff / Slide Review NO; Basophils Absolute Auto 0 /uL (0-100); Basophils Percent Auto 0.4 % (0-2); Eosinophils Absolute Auto 100 /uL (0-450); Eosinophils Percent Auto 1.5 % (2-4); Hematocrit 34.3 % (41-53); Hemoglobin 11.9 g/dL (13.5-17.5); Lymphocytes Absolute Auto 1600 /uL (1100-4500); Lymphocytes Percent Auto 17.4 % (25-40); Mean Corpuscular HGB Conc 34.7 % (30-36); Mean Corpuscular Hemoglobin 30.5 PG (26-34); Monocytes Absolute Auto 600 /uL (0-900); Monocytes Percent Auto 6.6 % (3-14); Neutrophils Absolute Auto 6900 /uL (1500-7000); Neutrophils Percent Auto 74.1 % (50-75); Platelet Count 342 X10^3/uL (150-400); White Blood Cell Count 9.3 X10^3/uL (4.5-11.0)
[2021-04-06 06:16] LABS: Alanine Aminotransferase 30 IU/L (<50); Albumin 3.8 g/dL (3.5-5.0); Albumin Globulin Ratio 1.5 (1.0-2.8); Alkaline Phosphatase 76 U/L (38-126); Aspartate Aminotransferase 35 IU/L (17-59); BUN Creatinine Ratio 18.4 (6-22); Bilirubin Total 0.7 mg/dL (0.2-1.3); Blood Urea Nitrogen 9 mg/dL (9-20); Calcium 8.8 mg/dL (8.4-10.2); Carbon Dioxide 33 mmol/L (22-32); Chloride 101 mmol/L (98-107); Estimated Glomerular Filt Rate > 60.0 mL/min (>60); Globulin 2.6 g/dL (1.7-4.1); Glucose 50 mg/dL (70-100); HEMOLYSIS 22 (0-50); Magnesium 1.9 mg/dL (1.6-2.3); Phosphorous 3.3 mg/dL (2.5-4.5); Potassium 3.1 mmol/L (3.4-5.1); Sodium 138 mmol/L (137-145); Total Protein 6.4 g/dL (6.3-8.2)
[2021-04-06 06:26] VITALS: BP 147/93; PULSE 81; RESP 16; TEMP 36.8; O2SAT 100
--- NOTE | 2021-04-06 06:40 | PC.NURSE ---
Addendum entered by Niharika Cabrera R.N. 04/06/21 07:12: 0700- Repeat Blood Glucose was 100. Patient felt nauseated he was medicated per order. Original Note: 06- Lab result blood sugar 50. Patient awake and alert. Given fruit cup and fely maricel. Will recheck Blood Sugar in a few minutes.
[2021-04-06] MEDS: ONDANSETRON 4 MG/2 ML INJ IV (07:08)
[2021-04-06] MEDS: LACTOBACILLUS ACIDOPHILUS TABLET 1 EACH PO (08:08)
[2021-04-06 08:59] LABS: pH VBG 7.36 (7.33-7.43)
[2021-04-06] MEDS: POTASSIUM CHLORIDE 20 MEQ TAB 40 MEQ PO ×2 (09:16→13:20)
[2021-04-06 11:52] VITALS: BP 166/89; PULSE 92; RESP 19; TEMP 35.9; O2SAT 98
[2021-04-06] MEDS: INSULIN LISPRO 100 UNIT/ML 3ML VIAL SUBCUT (12:03)
--- NOTE | 2021-04-06 13:26 | PM.DS.1 ---
History of Present Illness History of Present Illness Chief complaint: nausea/unable to sleep x3 days Narrative: Is a very pleasant 35-year-old male who presented to the ER today with intractable vomiting that had been ongoing for 2 and half days. He has a history of type 1 diabetes is under the primary care of Dr. Nicholson. He uses NovoLog insulin usually is very well controlled. He states that he started feeling off on Thursday night and because he fell off he just really could not describe it. He no longer had an appetite and actually stopped eating. Then on Thursday he was at work where he works on a [employer] from on [facility] [place] states that he distant feel right. He then by the end of the day started vomiting and continued to vomit every 20 minutes until he reported to the emergency department. He had pain throughout his body and muscles from the vomiting and felt weak in his legs. In the emergency department he was found to be in diabetic ketoacidosis with a pH of 7.1 and acidosis and and was admitted for treatment. He was started on insulin drip and quickly started correcting his acidosis, ketosis and pH. Past medical history: Insulin-dependent diabetes. He was diagnosed at about 23. He has been on NovoLog 1 unit per 8 g carbohydrates and has done very well. Tobacco use Allergies: Amoxicillin causes a rash Past surgical history: Unremarkable Health related behavior: Smokes cigarettes. Uses marijuana on a daily basis. Does not use illicit drugs. Uses rare alcohol Social history: Patient lives in in accordance with his parents. He works on [email or web address] at [employer] Family history: He has 2 sisters who are type 1 diabetics but no other family history of abnormalities Discharge Providers Provider Date of admission: 04/03/21 09:54 Discharge Date: 04/06/21 Primary care physician: Dr. Nicholson Consults: 04/03/21 12:23 Consult to Hospitalist Service Routine Comment: PLEASE ASSIST WITH DKA PT Consulting Provider: Tereso Nicolas Reason for consultation: DKA Has provider been notified: Yes 04/03/21 12:35 Consult to Dietitian, Adult Routine Comment: Reason For Exam: DKA, weight loss 04/03/21 14:00 Consult to Tele-supervisor [employer] Routine Comment: Consulting Provider: Gwen [employer]int[employer] Reason for consultation: [employer] services Has provider been notified: Yes Discharge provider: Michaelle Jordan MD Summary Hospital Course Discharge Diagnosis: Insulin-dependent diabetes mellitus DKA, improved Dehydration, improved Leukocytosis, improved Hypokalemia, improving Intractable vomiting, resolved; differential includes infectious etiology versus cannabis hyperemesis syndrome Hospital Course: Patient is a very well controlled insulin-dependent diabetes mellitus patient who presented to the emergency room after approximately 72 hours of vomiting and inability to keep fluids or solids down. Patient was found to be in DKA. He was started on insulin drip and given IV fluids as well as electrolyte replacement. Hospitalists were consulted as was tele ICU. Patient had rapid improvement. He was found to have a significant leukocytosis with some inflammation on his CT scan and was given 2 days of Flagyl and ceftriaxone to cover for possible infectious disease etiology. His leukocytosis improved fairly rapidly and the antibiotics were discontinued and his leukocytosis continued to improve. His nausea and vomiting as well continue to improve as we corrected his metabolic acidosis and his anion gap. He was discharged home on hospital day 4 in markedly improved condition. He was discharged home on his outpatient medications. He was also discharged home on 40 mEq of potassium. He received 40 mEq orally twice daily on day of discharge. He will have labs checked on Thursday with a follow-up with his primary care provider Dr. Nicholson next week. Will also work to get appointment with clipping marker as Dr. Nicholson had previously referred him but he was not able to make the appointment for logistical reasons. He understands the importance of following through with this. Time spent in discharge was 35 minutes. Status at Discharge Cognitive/behavioral status at discharge: oriented Functional status at discharge: independent ambulation Overall status at discharge: patient is progressing back to baseline Exam Vital Signs (past 8 hours): - 04/06/21 06:26 04/06/21 11:52 Temperature 98.3 F 96.6 F L Pulse Rate 81 92 H Respiratory Rate 16 19 Blood Pressure 147/93 H 166/89 H Pulse Oximetry 100 98 Oxygen Delivery Method Room Air Oxygen Flow Rate 0 Narrative Exam Narrative: Afebrile, vital signs are stable. Patient is alert and oriented no apparent distress. He had eager to get home. HEENT is unremarkable Neck: Supple without adenopathy or thyromegaly Chest: Clear to auscultation without wheezes rhonchi or crackles Cor: Regular rate and rhythm distant S1-S2 Abdomen: Positive bowel sounds, soft, nontender, nondistended, no hepatosplenomegaly, no midepigastric tenderness. No flank Tenderness extremities: No edema pulses intact Skin no rashes Objective Labs Result Diagrams: 04/06/21 05:59 04/06/21 05:59 Labs: Laboratory Results - last 24 hr 04/04/21 04/06/21 04/06/21 11:16 05:59 05:59 WBC 9.3 RBC 3.90 L Hgb 11.9 L Hct 34.3 L MCV 88.0 MCH 30.5 MCHC 34.7 RDW 13.0 Plt Count 342 Neut % (Auto) 74.1 Lymph % (Auto) 17.4 L [place] % (Auto) 6.6 Eos % (Auto) 1.5 L Baso % (Auto) 0.4 Neut # (Auto) 6900 Lymph # (Auto) 1600 [place] # (Auto) 600 Eos # (Auto) 100 Baso # (Auto) 0 VBG pH 7.36 Sodium 138 Potassium 3.1 L Chloride 101 Carbon Dioxide 33 H BUN 9 Creatinine 0.49 L Estimated GFR > 60.0 BUN/Creatinine Ratio 18.4 Glucose 50 L Calcium 8.8 Phosphorus 3.3 D Magnesium 1.9 Total Bilirubin 0.7 AST 35 ALT 30 Alkaline Phosphatase 76 Total Protein 6.4 Albumin 3.8 Globulin 2.6 Albumin/Globulin Ratio 1.5 [facility] Medical History Type 1 diabetes Social History household members: family Smoking Status: Current every day smoker Discharge Assessment & Plan Assessment and Plan Assessment: Insulin-dependent diabetes mellitus DKA, improved Dehydration, improved Leukocytosis, improved Hypokalemia, improving Intractable vomiting, resolved; differential includes infectious etiology versus cannabis hyperemesis syndrome Elevated blood pressure, not on antihypertensive. Plan of Treatment: Discharge to home in stable condition Continue out patient regimen for insulin Only additional medication will be 40 mEq of potassium once daily. He received 80 mEq on day of discharge. He will need a repeat BMP on Thursday and follow up with Dr. Nicholson next week. Monitor blood pressure and would recommend starting an Misael or Arb as outpatient Make endocrinology appointment Discharge Plan Discharge Plan Patient Disposition: Home Discharge orders & Medications Prescriptions: Continued insulin glargine 100 unit/mL Cartridge 30 unit SUBCUT BEDTIME 0RF Follow up/Referrals: Whit Nicholson MD [Physician] - 04/10/21 12:00 am Discharge Health Status Multidrug resistant organism: No MDRO Diet/Activity/Treatments Diet: Carb-consistent/Diabetic
== END 2021-04-06 14:20 | disposition home or self-care (01) | DRG 638 ==
LOC: ED 09:19 → ICU 13:04 → AC 04-09 11:51 → ICU 04-09 11:51
PROVIDERS: Hospitalist; Internal Medicine Critical Care Medicine; Nurse Practitioner Family; Admitting Provider Family Medicine; Emergency Provider Emergency Medicine; Referring Provider Emergency Medicine; Visit Provider Family Medicine
DX: E10.10 Type 1 diabetes mellitus with ketoacidosis without coma (principal); A09 Infectious gastroenteritis and colitis, unspecified; E86.0 Dehydration; R11.10 Vomiting, unspecified; E87.6 Hypokalemia; E87.5 Hyperkalemia; I10 Essential (primary) hypertension; E78.5 Hyperlipidemia, unspecified; F98.8 Other specified behavioral and emotional disorders with onset usually occurring in childhood and adolescence; F17.210 Nicotine dependence, cigarettes, uncomplicated; F12.90 Cannabis use, unspecified, uncomplicated; Z20.822 Contact with and (suspected) exposure to COVID-19; Z79.4 Long term (current) use of insulin
CPT/HCPCS: 36415; 36592; 71045; 74177; 80048; 80053; 81001; 82009; 82805; 82962; 83036; 83605; 83735; 84100; 84145; 85025; 87040; 87633; 87797; 93005; 96361; 96365; 96366; 96368; 96375; 99284; 99291; J0696; J1200; J1815; J2405

== ENCOUNTER 2025-03-25 15:02 | Emergency (ER) | payer OTHER, SELFPAY ==
[2021-04-03 10:12] VITALS: BMI 21.1
[2025-03-25 15:14] VITALS: BP 138/79; PULSE 107; RESP 18; TEMP 36.4; O2SAT 100; BMI 20.8
[2025-03-25] MEDS: SODIUM CHLORIDE 0.9% 1,000 ML 1000 ML IV (15:40)
[2025-03-25 15:44] LABS: Add Manual Diff / Slide Review NO; Hematocrit 40.7 % (41-53); Hemoglobin 14.0 g/dL (13.5-17.5); Lymphocytes Absolute Auto 1100 /uL (1100-4500); Mean Corpuscular HGB Conc 34.4 % (30-36); Mean Corpuscular Hemoglobin 30.5 PG (26-34); Mean Corpuscular Volume 88.8 fL (80-100); Platelet Count 448 X10^3/uL (150-400)
[2025-03-25 15:48] LABS: Base Excess VBG -7.9 mmol/L (0-4); HCO3 VBG 16 mmol/L (24-28); Oxygen Saturation VBG 84 % (70-75); PCO2 VBG 29.7 mmHg (45-50); PO2 VBG 51 mmHg (35-45); Total CO2 VBG 16 mmol/L (24-29); pH VBG 7.35 (7.33-7.43)
[2025-03-25 15:50] LABS: Lactate (Lactic Acid) 2.5 mmol/L (0.7-2.1)
[2025-03-25 15:51] LABS: Alanine Aminotransferase 38 IU/L (<50); Albumin 5.5 g/dL (3.5-5.0); Albumin Globulin Ratio 1.7 (1.0-2.8); Alkaline Phosphatase 132 U/L (38-126); Blood Urea Nitrogen 22 mg/dL (9-20); Calcium 9.9 mg/dL (8.4-10.2); Carbon Dioxide 15 mmol/L (22-32); Chloride 97 mmol/L (98-107); Estimated Glomerular Filt Rate > 60 mL/min (>60); Globulin 3.3 g/dL (1.7-4.1); Glucose 306 mg/dL (70-99); HEMOLYSIS < 15 (0-50); Lipase 67 U/L (23-300); Potassium 4.5 mmol/L (3.4-5.1); Sodium 135 mmol/L (137-145); Total Protein 8.8 g/dL (6.3-8.2)
[2025-03-25 15:57] LABS: Ketones (Beta-Hydroxybutyrate) 4.65 mmol/L (<0.27)
--- NOTE | 2025-03-25 16:00 | ED.GENADULT ---
HPI - General Adult General Chief complaint: Diabetic Problem Stated complaint: Poss DKA?, vomiting all day Time Seen by Provider: 03/25/25 15:29 Source: patient Mode of arrival: Ambulatory History of Present Illness HPI narrative: Patient is a 39-year-old male history of insulin-dependent diabetes presenting today with vomiting. He is worried that he might be in DKA. He did give himself insulin this morning and tried to go to work but he was vomiting pretty persistently. Abdominal pain. He does admit that he drank more alcohol than usual last night and thought he would just might be hung over. He has been trying to drink fluids throughout the day but really not able to keep anything down. He denies any abdominal surgery no fever chills or other symptoms. Related Data Home Medications ?Medication ?Instructions ?Recorded ?Confirmed insulin glargine 100 unit/mL 30 unit SUBCUT BEDTIME 04/04/21 04/04/21 subcutaneous cartridge Allergies Allergy/AdvReac Type Severity Reaction Status Date / Time amoxicillin Allergy Intermediate Hives Verified 03/25/25 15:14 Patient History Medical History Type 1 diabetes Social History household members: family tobacco type: vaping alcohol intake frequency: 0-2 drinks per day Exam Initial Vital Signs Initial Vital Signs: Vital Signs Temperature 97.6 F 03/25/25 15:14 Pulse Rate 107 H 03/25/25 15:14 Respiratory Rate 18 03/25/25 15:14 Blood Pressure 138/79 03/25/25 15:14 Pulse Oximetry 100 03/25/25 15:14 Oxygen Delivery Method Room Air 03/25/25 15:14 GENERAL: Awake alert well-appearing 31-year-old male and in no acute distress. HEENT: Head atraumatic,EOMI, pupils reactive, face symmetric, moist mucous membranes CARDIOVASCULAR: Regular rate and rhythm without murmurs, rubs or gallops. RESPIRATORY: Breath sounds equal bilaterally, no wheezes rales or rhonchi. ABDOMEN: Soft, nontender. Normoactive bowel sounds all 4 quadrants. No guarding or rebound. EXTREMITIES: Normal range of motion, no clubbing or edema. Neurovascularly intact NEUROLOGICAL: Alert and oriented x4.Normal gait and speech. Cranial nerves II through XII grossly intact. SKIN: Warm, dry, no laceration, no petechiae, no rashes or lesions. Course Orders Ordered: Discontinued Medications Sodium Chloride (Normal Saline 0.9%) 1,000 mls @ 1,000 mls/hr IV BOLUS ONE Stop: 03/25/25 16:28 Last Infusion: 03/25/25 16:30 Dose: Infused Documented By: Admin: 03/25/25 15:40 Dose: 1,000 mls/hr Documented By: SHAY Insulin Human Lispro (Insulin Lispro 100 Unit/Ml 3ml Vial) 10 unit SUBCUT NOW ONE Stop: 03/25/25 18:33 Last Admin: 03/25/25 18:54 Dose: 10 unit Documented By: JESÚS Co-signed By: SHAY Insulin Human NPH (Insulin Nph 100 Unit/Ml 10ml Vial) 10 unit SUBCUT NOW ONE Stop: 03/25/25 18:05 Last Admin: 03/25/25 18:33 Dose: Not Given Documented By: SHAY Ondansetron HCl (Ondansetron 4 Mg/2 Ml Inj) 4 mg IV NOW ONE Stop: 03/25/25 15:30 Last Admin: 03/25/25 18:57 Dose: 4 mg Documented By: JESÚS Vital Signs Vital signs: Vital Signs - 8 hr 03/25/25 15:14 03/25/25 17:05 Temperature 97.6 F Pulse Rate 107 H 101 H Respiratory Rate 18 18 Blood Pressure 138/79 135/72 Pulse Oximetry 100 100 Oxygen Delivery Method Room Air Room Air Medical Decision Making Lab Data 03/25/25 15:28 03/25/25 17:30 Labs: Lab Results 03/25/25 03/25/25 03/25/25 Range/Units 15:22 15:28 15:43 WBC 14.0 H (4.5-11.0) X10^3/uL RBC 4.58 (4.5-5.9) X10^6/uL Hgb 14.0 (13.5-17.5) g/dL Hct 40.7 L (41-53) % MCV 88.8 (80-100) fL MCH 30.5 (26-34) PG MCHC 34.4 (30-36) % RDW 13.3 (11.6-14.8) % Plt Count 448 H (150-400) X10^3/uL Neut % (Auto) 88.5 H (50-75) % Lymph % (Auto) 8.0 L (25-40) % [place] % (Auto) 3.2 (3-14) % Eos % (Auto) 0.1 L (2-4) % Baso % (Auto) 0.2 (0-2) % Neut # (Auto) 93997 H (1512-6732) /uL Lymph # (Auto) 1100 (2890-1433) /uL [place] # (Auto) 500 (0-900) /uL Eos # (Auto) 0 (0-450) /uL Baso # (Auto) 0 (0-100) /uL VBG pH 7.35 (7.33-7.43) VBG pCO2 29.7 L (45-50) mmHg VBG pO2 51 H (35-45) mmHg VBG HCO3 16 L (24-28) mmol/L VBG Total CO2 16 L (24-29) mmol/L VBG O2 Saturation 84 H (70-75) % VBG Base Excess -7.9 L (0-4) mmol/L FiO2 % 21.0 % % Sodium 135 L (137-145) mmol/L Potassium 4.5 (3.4-5.1) mmol/L Chloride 97 L (98-107) mmol/L Carbon Dioxide 15 L (22-32) mmol/L BUN 22 H (9-20) mg/dL Creatinine 0.83 (0.66-1.25) mg/dL Estimated GFR > 60 (>60) mL/min BUN/Creatinine Ratio 26.5 H (6-22) Glucose 306 H (70-99) mg/dL POC Whole Bld Glucose 293 H (70-99) mg/dL Lactate 2.5 H (0.7-2.1) mmol/L Calcium 9.9 (8.4-10.2) mg/dL Total Bilirubin 0.7 (0.2-1.3) mg/dL AST 40 (17-59) IU/L ALT 38 (<50) IU/L Alkaline Phosphatase 132 H (38-126) U/L Total Protein 8.8 H (6.3-8.2) g/dL Albumin 5.5 H (3.5-5.0) g/dL Globulin 3.3 (1.7-4.1) g/dL Albumin/Globulin Ratio 1.7 (1.0-2.8) Lipase 67 (23-300) U/L Ketones 4.65 H (<0.27) mmol/L 03/25/25 03/25/25 03/25/25 Range/Units 17:04 17:30 18:41 WBC (4.5-11.0) X10^3/uL RBC (4.5-5.9) X10^6/uL Hgb (13.5-17.5) g/dL Hct (41-53) % MCV (80-100) fL MCH (26-34) PG MCHC (30-36) % RDW (11.6-14.8) % Plt Count (150-400) X10^3/uL Neut % (Auto) (50-75) % Lymph % (Auto) (25-40) % [place] % (Auto) (3-14) % Eos % (Auto) (2-4) % Baso % (Auto) (0-2) % Neut # (Auto) (8350-6120) /uL Lymph # (Auto) (2100-4546) /uL [place] # (Auto) (0-900) /uL Eos # (Auto) (0-450) /uL Baso # (Auto) (0-100) /uL VBG pH (7.33-7.43) VBG pCO2 (45-50) mmHg VBG pO2 (35-45) mmHg VBG HCO3 (24-28) mmol/L VBG Total CO2 (24-29) mmol/L VBG O2 Saturation (70-75) % VBG Base Excess (0-4) mmol/L FiO2 % % Sodium 136 L (137-145) mmol/L Potassium 4.5 (3.4-5.1) mmol/L Chloride 100 (98-107) mmol/L Carbon Dioxide 14 L (22-32) mmol/L BUN 20 (9-20) mg/dL Creatinine 0.74 (0.66-1.25) mg/dL Estimated GFR > 60 (>60) mL/min BUN/Creatinine Ratio 27.0 H (6-22) Glucose 238 H (70-99) mg/dL POC Whole Bld Glucose 239 H 272 H (70-99) mg/dL Lactate 1.5 (0.7-2.1) mmol/L Calcium 9.2 (8.4-10.2) mg/dL Total Bilirubin (0.2-1.3) mg/dL AST (17-59) IU/L ALT (<50) IU/L Alkaline Phosphatase (38-126) U/L Total Protein (6.3-8.2) g/dL Albumin (3.5-5.0) g/dL Globulin (1.7-4.1) g/dL Albumin/Globulin Ratio (1.0-2.8) Lipase (23-300) U/L Ketones (<0.27) mmol/L 12/13/ Range/Units 19:24 WBC (4.5-11.0) X10^3/uL RBC (4.5-5.9) X10^6/uL Hgb (13.5-17.5) g/dL Hct (41-53) % MCV (80-100) fL MCH (26-34) PG MCHC (30-36) % RDW (11.6-14.8) % Plt Count (150-400) X10^3/uL Neut % (Auto) (50-75) % Lymph % (Auto) (25-40) % [place] % (Auto) (3-14) % Eos % (Auto) (2-4) % Baso % (Auto) (0-2) % Neut # (Auto) (1321-2429) /uL Lymph # (Auto) (0923-3166) /uL [place] # (Auto) (0-900) /uL Eos # (Auto) (0-450) /uL Baso # (Auto) (0-100) /uL VBG pH (7.33-7.43) VBG pCO2 (45-50) mmHg VBG pO2 (35-45) mmHg VBG HCO3 (24-28) mmol/L VBG Total CO2 (24-29) mmol/L VBG O2 Saturation (70-75) % VBG Base Excess (0-4) mmol/L FiO2 % % Sodium (137-145) mmol/L Potassium (3.4-5.1) mmol/L Chloride (98-107) mmol/L Carbon Dioxide (22-32) mmol/L BUN (9-20) mg/dL Creatinine (0.66-1.25) mg/dL Estimated GFR (>60) mL/min BUN/Creatinine Ratio (6-22) Glucose (70-99) mg/dL POC Whole Bld Glucose 226 H (70-99) mg/dL Lactate (0.7-2.1) mmol/L Calcium (8.4-10.2) mg/dL Total Bilirubin (0.2-1.3) mg/dL AST (17-59) IU/L ALT (<50) IU/L Alkaline Phosphatase (38-126) U/L Total Protein (6.3-8.2) g/dL Albumin (3.5-5.0) g/dL Globulin (1.7-4.1) g/dL Albumin/Globulin Ratio (1.0-2.8) Lipase (23-300) U/L Ketones (<0.27) mmol/L Point of Care Testing Glucose POC 239 Urine Dip Bedside Urine Glucose 1000 mg/dl Bedside Urine Bilirubin - Negative Bedside Urine Ketone +++ 80 Urine Specific Welches 1.025 Bedside Urine Occult Blood +/- Bedside Urine pH 5.0 Bedside Urine Protein - Negative Bedside Urine Urobilinogen - Negative Bedside Urine Nitrite - Negative Bedside Urine Leukocytes - Negative Esterase Point of care testing: Point of Care Testing Glucose POC 239 Urine Dip Bedside Urine Glucose 1000 mg/dl Bedside Urine Bilirubin - Negative Bedside Urine Ketone +++ 80 Urine Specific Welches 1.025 Bedside Urine Occult Blood +/- Bedside Urine pH 5.0 Bedside Urine Protein - Negative Bedside Urine Urobilinogen - Negative Bedside Urine Nitrite - Negative Bedside Urine Leukocytes - Negative Esterase [facility] Narrative Medical decision making narrative: Patient is a 39 year my history of insulin-dependent diabetes presenting today with nausea vomiting after a night of drinking alcohol. Initial POC glucose is 293. Blood work reviewed Venous pH 7.35 Lactic acid 2.5 Anion gap 23 Ketones 4.65 CBC shows leukocytosis of 14 CMP sodium 135 potassium 4.5 chloride 197 bicarb 15 BUN 22 creatinine 0.8 glucose 306, repeat CMP shows bicarb that goes slightly lower of 14 Bilirubin 0.7 AST 40 ALT 38 alk-phos 132 Has an anion gap has mild hyperglycemia with ketones but a normal pH. He overall appears well he received a L of fluid he was given a dose of insulin here in the ED Patient is given 10 units of insulin here in the ED, repeat glucose is 226. Patient appears nontoxic no longer nauseated or vomiting. Abdomen is soft tolerating p.o. fluids. Long discussion with patient about proper management of his diabetes including getting a glucometer and checking his glucose regularly before giving himself insulin. He understands this he has already ordered 1 on [employer]. Recommended if patient continues to feel poorly then to return to the ED. Discharge Plan Departure Patient Disposition: Home Clinical Impression: Type 1 diabetes Instructions: DI for Diabetes Type 1 -- Adult Activity Restrictions/Additional Instructions: *You have been diagnosed with hyperglycemia *What to do: At this time please manage your diabetes. Get a glucometer check your sugars give insulin appropriately Please go home and eat a full meal as well this will also help. *Continue to take medications as directed *Follow up with your primary care provider in 2-3 days or call [phone] *Return to ER if you should have increasing nausea persistent vomiting or any new, worsening or concerning symptoms Prescriptions: No Action insulin glargine 100 unit/mL Cartridge 30 unit SUBCUT BEDTIME Stand Alone Forms: Patient Portal/API
[2025-03-25 17:05] VITALS: BP 135/72; PULSE 101; RESP 18; O2SAT 100
[2025-03-25 17:16] LABS: Reflexed Lactate in 2 Hours Y
[2025-03-25 17:58] LABS: Blood Urea Nitrogen 20 mg/dL (9-20); Calcium 9.2 mg/dL (8.4-10.2); Carbon Dioxide 14 mmol/L (22-32); Chloride 100 mmol/L (98-107); Estimated Glomerular Filt Rate > 60 mL/min (>60); Glucose 238 mg/dL (70-99); HEMOLYSIS < 15 (0-50); Lactate 2HR (Lactic Acid Rflx) 1.5 mmol/L (0.7-2.1); Potassium 4.5 mmol/L (3.4-5.1); Sodium 136 mmol/L (137-145)
[2025-03-25] MEDS: INSULIN LISPRO 100 UNIT/ML 3ML VIAL 10 UNIT SUBCUT (18:54)
[2025-03-25] MEDS: ONDANSETRON 4 MG/2 ML INJ IV (18:57)
[2025-03-25 19:00] VITALS: BP 124/64; PULSE 104; RESP 22; O2SAT 100
[2025-03-25 19:39] VITALS: BP 124/64; PULSE 97; RESP 18; O2SAT 98
== END 2025-03-25 19:43 | disposition home or self-care (01) ==
PROVIDERS: Emergency Provider Emergency Medicine
DX: E10.65 Type 1 diabetes mellitus with hyperglycemia (principal); R10.9 Unspecified abdominal pain
CPT/HCPCS: 36415; 80048; 80053; 81003; 82009; 82805; 82962; 83605; 83690; 85025; 96360; 96361; 96374; 99284; J1815; J2405; J7030